=== PATIENT | male | born 1960 | race Caucasian/White ===

== ENCOUNTER 2024-03-18 11:52 | Inpatient (IN) | payer BC, OTHER ==
--- OUTSIDE RECORDS SUMMARY | 2024-03-18 11:56 | XMS REPORT | Continuity of Care Document ---
Author Name Unknown Address [address] [facility] [address] [place] [address] [facility] Address [address] [facility] [address] [place] [address] Care Team Providers Care Assignment Manager Name Role Phone Demetrius Ennis MD Primary Care Physician + [phone] Davon Chaudhry MD Attending Clinician [phone] DAVON CHAUDHRY Attending Clinician Unavail able Payers Payer Name Policy Type Policy Number Effective Date Expirati on Date Source Problems Condition Name Condition Details Condition Category Status Onset Date Resolution Date Last Treatment Date Treating Clinician Comments Source Aphasia Aphasia Disease Active 2023-03 00:00: 00 Memmine Mancuso Primary hypertensi on Primary hypertensi on Disease Active 2023-03 00:00: 00 Memoria l Dean Epic Hyperlipid emia Hyperlipid emia Disease Active 2023-03 00:00: 00 Memoria macario Moran Epic Memory loss Memory loss Disease Active 2023-03 00:00: 00 Memoria l Dean Epic Dysarthria Dysarthria Disease Active 11-06 00:00: 00 Memoria l Dean Epic Allergies, Adverse Reactions, Alerts Allergy Name Allergy Type Status Severity Reaction(s) Onset Date Inactive Date Treating Clinician Comments Source NO KNOWN ALLERGIE S SYSTEMIC Active MHEOUT ALLERGIE S NOT ON FILE SYSTEMIC Active MHEOUT ALLERGIE S NOT ON FILE SYSTEMIC Active MHEOUT NO KNOWN ALLERGIE S SYSTEMIC Active MHEOUT NO KNOWN ALLERGIE S SYSTEMIC Active MHEOUT Social History Social Habit Start Date Stop Date Quantity Comments Source History of tobacco use Passive smoker [facility] Gender identity Ciaran jarad [facility] Sexual orientation [facility] Alcoholic beverage intake 2024-02-23 00:00:00 2024-02-23 00:00:00 Current drinker of alcohol (finding) [facility] History of Social function 2024-02-23 00:00:00 2024-02-23 00:00:00 [facility] Tobacco use and exposure 2023-11-07 00:00:00 2023-11-07 00:00:00 Smokeless tobacco non-user [facility] Smoking Status Start Date Stop Date Source Smokes tobacco daily 2023-11-07 00:00:00 [facility] Medications Ordered Medication Name Filled Medication Name Start Date Stop Date Current Medication? Ordering Clinician Indication Dosage Frequency Signature (SIG) Comments Components Source Cyanocobala min (Vitamin B-12) 3000 MCG/ML liquid Cyanocobala min (Vitamin B-12) 3000 MCG/ML liquid 2023-03 14:21: [address] under the tongue. Ja sorto [facility] L-METHYLFOL ATE PO L-METHYLFOL ATE PO 2023-03 14:21: 56 Yes Take by mouth. Ja sorto [facility] Mounjaro 5 MG/0.5ML pen-injecto r Mounjaro 5 MG/0.5ML pen-injecto r 2023-03 00:00: 00 Yes Ja sorto [facility] atorvastati n (Lipitor) 20 MG tablet atorvastati n (Lipitor) 20 MG tablet 11-06 15:18: 39 Yes 20mg QD Take 20 mg by mouth 1 time each day. Ja sorto [facility] nebivolol (Bystolic) 20 MG tablet nebivolol (Bystolic) 20 MG tablet 11-06 15:18: 39 Yes 20mg QD Take 20 mg by mouth 1 time each day. Ja sorto [facility] olmesartan (BENIcar) 40 MG tablet olmesartan (BENIcar) 40 MG tablet 11-06 15:18: 39 Yes 40mg QD Take 40 mg by mouth 1 time each day. Ja sorto [facility] aspirin EC ([facility] Aspirin) 81 MG EC tablet aspirin EC ([facility] Aspirin) 81 MG EC tablet 9-03 15:18: 39 Yes 81mg QD Take 81 mg by mouth 1 time each day. Ja Moran [facility] ascorbic acid (vitamin C) 500 MG tablet ascorbic acid (vitamin C) 500 MG tablet 9-03 15:18: 39 02-22 00:00 :00 No 500mg QD Take 500 mg by mouth 1 time each day. Ja Moran [facility] metFORMIN (Glucophage ) 850 MG tablet metFORMIN (Glucophage ) 850 MG tablet 7-16 00:00: 00 02-22 00:00 :00 No 850mg Take 850 mg by mouth in the morning and 850 mg in the evening. Take with meals. Ja Moran [facility] Icosapent Ethyl (Vascepa) 1 g capsule Icosapent Ethyl (Vascepa) 1 g capsule 08-03 00:00: 00 Yes 2g Take 2 g by mouth in the morning and 2 g in the evening. Take [facility] meals. [facility] Vital Signs Vital Name Observation Time Observation Value Comments S scott Systolic blood pressure 2024-02-23 14:18:00 130 mm[Hg] [facility] Diastolic blood pressure 2024-02-23 14:18:00 94 mm[Hg] [facility] Heart rate 2024-02-23 14:18:00 85 /min [facility] Body temperature 2024-02-23 14:18:00 36.78 Zoya [facility] Respiratory rate 2024-02-23 14:18:00 16 /min [facility] Body height 2024-02-23 14:18:[address] [facility] Body weight 2024-02-23 14:18:[address] [facility] BMI 2024-02-23 14:18:00 28.24 kg/m2 [facility] Oxygen saturation in Arterial blood by Pulse oximetry 2024-02-23 14:18:00 96 /min [facility] Systolic blood pressure 2024-02-23 14:18:00 130 mm[Hg] [facility] Diastolic blood pressure 2024-02-23 14:18:00 94 mm[Hg] [facility] Epic Heart rate 2024-02-23 14:18:00 85 /min [facility] [place] [facility] Body temperature 2024-02-23 14:18:[address] [facility] Epic Respiratory rate 2024-02-23 14:18:00 16 /min [facility] Epic Body height 2024-02-23 14:18:00 175.3 cm Ciaran [facility] [place] Epic Body weight 2024-02-23 14:18:00 86.728 kg Ciaran rial [facility] BMI 2024-02-23 14:18:00 28.24 kg/m2 [facility] [place] [facility] Oxygen saturation in Arterial blood by Pulse oximetry 2024-02-23 14:18:00 96 /min [facility] Systolic blood pressure 2023-12-14 14:03:00 145 mm[Hg] [facility] Diastolic blood pressure 2023-12-14 14:03:00 94 mm[Hg] [facility] Heart rate 2023-12-14 14:03:00 98 /min [facility] [place] Epic Body temperature 2023-12-14 14:03:[address] [facility] Epic Respiratory rate 2023-12-14 14:03:00 16 /min [facility] Body height 2023-12-14 14:03:00 179.1 cm Ciaran [facility] Body weight 2023-12-14 14:03:00 90.719 kg [facility] [place] Epic BMI 2023-12-14 14:03:00 28.29 kg/m2 Ciaran rial [facility] Oxygen saturation in Arterial blood by Pulse oximetry 2023-12-14 14:03:00 96 /min [facility] Systolic blood pressure 2023-12-14 14:03:00 145 mm[Hg] [facility] Diastolic blood pressure 2023-12-14 14:03:00 94 mm[Hg] [facility] Heart rate 2023-12-14 14:03:00 98 /min [facility] Body temperature 2023-12-14 14:03:[address] [facility] Epic Respiratory rate 2023-12-14 14:03:00 16 /min [facility] Body height 2023-12-14 14:03:00 179.1 cm Ciaran rial Dean [facility] Body weight 2023-12-14 14:03:00 90.719 kg [facility] [place] Epic BMI 2023-12-14 14:03:00 28.29 kg/m2 Ciaran rial [facility] Oxygen saturation in Arterial blood by Pulse oximetry 2023-12-14 14:03:00 96 /min [facility] Systolic blood pressure 2023-11-07 15:19:00 159 mm[Hg] [facility] Diastolic blood pressure 2023-11-07 15:19:00 103 mm[Hg] [facility] Heart rate 2023-11-07 15:19:00 73 /min [facility] [place] [facility] Body temperature 2023-11-07 15:19:00 36.22 [facility] Respiratory rate 2023-11-07 15:19:00 16 /min [facility] Body height 2023-11-07 15:19:00 175.3 cm Ciaran rial Dean [facility] Body weight 2023-11-07 15:19:00 89.359 kg Ciaran rial Dean [facility] BMI 2023-11-07 15:19:00 29.09 kg/m2 [facility] [place] Epic Oxygen saturation in Arterial blood by Pulse oximetry 2023-11-07 15:19:00 97 /min [facility] Systolic blood pressure 2023-11-07 15:19:00 159 mm[Hg] [facility] Diastolic blood pressure 2023-11-07 15:19:00 103 mm[Hg] [facility] Heart rate 2023-11-07 15:19:00 73 /min [facility] Body temperature 2023-11-07 15:19:00 36.22 [facility] Respiratory rate 2023-11-07 15:19:00 16 /min [facility] Body height 2023-11-07 15:19:00 175.3 cm Ciaran rial Dean [facility] Body weight 2023-11-07 15:19:00 89.359 kg [facility] [place] [facility] BMI 2023-11-07 15:19:00 29.09 kg/m2 Ciaran rial [facility] Oxygen saturation in Arterial blood by Pulse oximetry 2023-11-07 15:19:00 97 /min [facility] Procedures Procedure Date / Time Performed Performing Clinician Source MRI brain wo IV contrast 2024-02-23 00:00:00 [facility] Ceruloplasmin 2023-11-07 00:00:00 [facility] Copper Level 2023-11-07 00:00:00 [facility] C-Reactive Protein 2023-11-07 00:00:00 [facility] Sedimentation Rate 2023-11-07 00:00:00 [facility] Vitamin B1 Level 2023-11-07 00:00:00 Ciaran rial [facility] Vitamin B12 Level 2023-11-07 00:00:00 [facility] Antibodies 2023-11-07 00:00:00 [facility] Zinc Level 2023-11-07 00:00:00 [facility] Acetylcholine Receptor Binding Antibody 2023-11-07 00:00:00 [facility] Acetylcholine Receptor Blocking Antibody 2023-11-07 00:00:00 [facility] Antivoltage-Gated Calcium Channel Antibody Assay 2023-11-07 00:00:00 [facility] Creatine Kinase 2023-11-07 00:00:00 [facility] Aldolase 2023-11-07 00:00:00 [facility] Rod(SSA/SSB) Antibody 2023-11-07 00:00:00 [facility] Herpes Simplex Virus 1 and 2 (IgG), with Reflex to HSV-2 Inhibition 2023-11-07 00:00:00 [facility] Varicella Zoster Antibody, IgG 2023-11-07 00:00:00 [facility] Varicella Zoster Antibody, IgM 2023-11-07 00:00:00 [facility] Encounters Start Date/Time End Date/Time Encounter Type Admission Type Attending [facility] Care Facility Care Department Encounter ID Source 2024-02-23 13:45:00 2024-02-23 15:08:20 Office Visit Davon Chaudhry [id number] [facility] 2024-02-23 13:36:05 2024-02-23 15:08:20 Outpatient DAVON CHAUDHRY MHEOUT MHEOUT [id number] MHEOUT 2023-12-14 14:00:00 2023-12-14 14:22:52 Office Visit Davon Chaudhry [id number] [facility] 2023-12-14 13:47:36 2023-12-14 14:22:52 Outpatient DAVON CHAUDHRY MHEOUT MHEOUT [id number] MHEOUT 2023-11-07 15:00:00 2023-11-07 16:22:54 Consult Davon Chaudhry [id number] [facility] 2023-11-07 14:41:24 2023-11-07 16:22:54 Outpatient DAVON CHAUDHRY MHEOUT MHEOUT [id number] MHEOUT
[2024-03-18 13:39] LABS: Absolute Basophils 0.1 K/uL (0-0.5); Absolute Eosinophils 0.1 K/uL (0-0.5); Absolute Lymphocytes (CBC) 1.4 K/uL (0.7-4.9); Absolute Neutrophil 6.7 K/uL (1.8-8.0); Basophils % 0.7 % (0-1.3); Eosinophils % 0.8 % (0-4.4); Hematocrit 46.5 % (39.6-49.0); Hemoglobin 15.9 g/dL (13.6-17.9); Lymphocytes % 14.9 % (15.3-44.8); MCH 33.1 pg (27.0-35.0); MCHC 34.3 g/dL (32.0-36.0); MCV 96.5 fL (80-100); MPV 8.6 fL (7.6-11.3); Monocytes % 11.1 % (3.3-12.3); Neutrophils % 72.5 % (41.7-73.7); Platelets 152 thou/uL (152-406); RBC Red Blood Cell Count 4.81 M/uL (4.33-5.43); Red Cell Distribution Width 12.9 % (12.1-15.2)
[2024-03-18 13:47] LABS: PT Prothrombin Time 12.6 SECONDS (9.4-12.5); Protime INR 1.2
--- NOTE | 2024-03-18 14:17 | RAD REPORT ---
EXAMINATION: US LEFT LOWER EXTREMITY VENOUS DOPPLER CLINICAL INDICATION: [facility] MAIN left PAIN Bed Name: DX5 Y TECHNIQUE: Complete bilateral duplex sonography of the LEFT lower extremity veins was performed. The examination included compression for vein patency, color Doppler imaging and flow augmentation in response to distal compression of the distal external iliac, common femoral, femoral, popliteal, tibi al, and great and small saphenous veins. COMPARISON: No prior exam. FINDINGS: Duplex sonography testing of the veins of the LEFT lower extremity was performed. Color flow imaging shows common and superficial femoral veins to be compressible with [id number] color filling. Pulsatile and phasic flow is present Noncompressible popliteal vein with acute appearing hypoechoic thrombus. Partially compressible poste rior tibial veins with hypoechoic thrombus. IMPRESSION: Evidence of deep venous thrombosis of the popliteal vein with and posterior tibial veins. THIS REPORT CONTAINS FINDINGS THAT MAY BE CRITICAL TO PATIENT CARE. The findings were verbally commun icated via telephone to Grover Whittaker on 03/18/2024 2:10PM.
--- NOTE | 2024-03-18 14:20 | RAD REPORT ---
EXAMINATION: US Lower Extremity Artery Uni Ltd CLINICAL INDICATION: Male, 63 years old. [facility] MAIN left PAIN Bed Name: DX5 TECHNIQUE: Arterial duplex ultrasound was performed of the Right lower extremity with real-time, colo r-flow, and spectral wave Doppler evaluation. COMPARISON: No prior exam. FINDINGS: Moderate plaque throughout the evaluated arterial system. Triphasic waveforms are seen along the com mon femoral and proximal superficial femoral arteries. Biphasic waveforms along the mid superficial femoral artery. Occlusion with absent flow along the distal superficial femoral artery and popliteal artery. Reconstitution of flow along the posterior tibial and dorsalis pedis arteries, with monophasic waveforms and blunted upstroke. IMPRESSION: Occlusion of the distal superficial femoral and popliteal arteries. Reconstitution of flow along the posterior tibial and dorsalis pedis arteries with monophasic wavefor ms and blunted upstroke. THIS REPORT CONTAINS FINDINGS THAT MAY BE CRITICAL TO PATIENT CARE. The findings were verbally commun icated via telephone to Grover Whittaker on 03/18/2024 2:10PM.
--- NOTE | 2024-03-18 14:35 | ER ---
Nurse's Notes [facility] Name: Ishaan Maldonado Age: 63 yrs Sex: Male : 1960 Arrival Date: 03/18/2024 Time: 11:52 Bed 20 Private MD: Diagnosis: Deep venous thrombosis;Superficial femoral and popliteal artery occlussions;Pulmonary embolism without acute cor pulmonale Presentation: 03/18 12:21 Chief complaint: Patient states: tingling and numbness in left foot , having pain in iw left calf, has a Doppler ordered in 2 weeks but it's getting worse. Coronavirus screen: At this time, the client does not indicate any symptoms associated with coronavirus-19. Ebola Screen: No symptoms or risks identified at this time. Risk Assessment: Do you want to hurt yourself or someone else? Patient reports no desire to harm self or others. 12:21 Method Of Arrival: Ambulatory iw 12:21 Acuity: MAX 3 iw 17:30 Initial Sepsis Screen: Does the patient meet any 2 criteria? No. Patient's initial ld1 sepsis screen is negative. Does the patient have a suspected source of infection? No. Patient's initial sepsis screen is negative. Onset of symptoms was March 18, 2024. Historical: - Allergies: 12:22 No Known Allergies; iw - PMHx: 12:22 Diabetes mellitus; iw - Immunization history:: Adult Immunizations up to date. - Infectious Disease History:: Denies. - Social history:: Smoking status: Patient reports the use of cigarette tobacco products, smokes one pack cigarettes per day. Screenin:20 [facility] ED Fall Risk Assessment (Adult) History of falling in the last 3 months, ld1 including since admission No falls in past 3 months (0 pts) Confusion or Disorientation No (0 pts) Intoxicated or Sedated No (0 pts) Impaired Gait No (0 pts) Mobility Assist Device Used No (0 pt) Altered Elimination No (0 pt) Score/Fall Risk Level 0 - 2 = Low Risk Oriented to surroundings, Maintained a safe environment, Educated pt \T\ family on fall prevention, incl call for assistance when getting out of bed, Assessed \T\ reinforced patient's understanding of fall precautions, Provided non-skid footwear, Hourly rounding (assess needs \T\ fall precautionary measures) done, Used ambulatory aids as needed (educated on \T\ assisted with), Used gait belt as appropriate. Abuse screen: Denies threats or abuse. Denies injuries from another. Nutritional screening: No deficits noted. Tuberculosis screening: No symptoms or risk factors identified. Assessment: 13:20 General: Appears in no apparent distress. comfortable, Behavior is calm, cooperative, ld1 appropriate for age. Pain: Complains of pain in left leg Pain does not radiate. Pain currently is 8 out of 10 on a pain scale. Quality of pain is described as throbbing, Pain began 2-3 days ago. Is continuous. Neuro: Level of Consciousness is awake, alert, obeys commands, Oriented to person, place, time, situation, Appropriate for age. Cardiovascular: Capillary refill < 3 seconds Patient's skin is warm and dry. Rhythm is sinus tachycardia. Respiratory: Airway is patent Respiratory effort is even, unlabored. GI: Abdomen is flat, non-distended. : No signs and/or symptoms were reported regarding the genitourinary system. EENT: No signs and/or symptoms were reported regarding the EENT system. Derm: Skin temperature is hot. Musculoskeletal: No signs and/or symptoms reported regarding the musculoskeletal system. Vital Signs: 12:23 BP 127 / 87; Pulse 115; Resp 18; Temp 97.9; Pulse Ox 98% on R/A; Weight 86.64 kg; iw Height 5 ft. 11 in. ; Pain 8/10; 13:20 BP 128 / 79; Pulse 107; Resp 18; Temp 98.6(O); Pulse Ox 97% on R/A; ld1 14:15 BP 100 / 86; Pulse 110; Resp 18; Pulse Ox 97% on R/A; ld1 15:03 Weight 87.09 kg (M); ld1 15:39 BP 129 / 102; Pulse 112; Resp 18; Pulse Ox 95% on R/A; iw 12:23 Body Mass Index 26.64 (87.09 kg, 180.34 cm) iw 12:23 Pain Scale: Adult iw ED Course: 11:56 Patient arrived in ED. sj2 12:11 Grover Whittaker DO is Attending Physician. ms3 12:22 Triage completed. iw 12:23 Arm band placed on. iw 12:54 Extremity Venous Uni Ltd US In Process Unspecified. EDMS 12:54 Lower Extremity Artery Uni Ltd US In Process Unspecified. EDMS 13:14 Ashley Whittaker, RN is Primary Nurse. ld1 13:20 Patient has correct armband on for positive identification. Placed in gown. Bed in low ld1 position. Call light in reach. Side rails up X2. athletic monitor on. Pulse ox on. NIBP on. Door closed. Noise minimized. Warm blanket given. 13:20 No provider procedures requiring assistance completed. ld1 13:29 Inserted saline lock: 22 gauge in left antecubital area, using aseptic technique. Blood ld1 collected. Flushed with 10 mL NS. 13:30 PT-INR Sent. ld1 13:30 BMP Sent. ld1 13:30 CBC with Diff Sent. ld1 14:33 Orestes Calvin is Hospitalizing Provider. ms3 14:45 CT Chest For PE Angio In Process Unspecified. EDMS 17:30 Patient admitted, IV remains in place. ld1 Administered Medications: 15:14 Drug: Heparin (DVT/PE- Bolus per protocol) - HEParin IVP 80 units/kg IVP once; Max iw 8,000 units {Co-Signature: smith (Jennifer Quick RN).} Route: IVP; Site: left antecubital; 16:27 Follow up: Response: No adverse reaction ld1 15:14 Drug: Heparin (DVT/PE Drip) 18 units/kg/hr - ([place] [address] units, D5W IV 500 ml) IV iw at calculated rate Per protocol; Max initial rate 1800 units/hr {Co-Signature: smith (Jennifer Quick RN).} Route: IV; Rate: calculated rate; Site: left antecubital; 16:27 Follow up: Response: No adverse reaction; IV Status: Infusion continued ld1 Medication: 13:20 VIS not applicable for this client. ld1 Outcome: 14:34 Decision to Hospitalize by Provider. ms3 17:30 Admitted to Med/surg accompanied by tech, via wheelchair, ld1 17:30 Condition: stable 17:30 Instructed on the need for admit, 17:30 Patient left the ED. ld1 Signatures: Dispatcher [employer] EDMS Mamie Hale RN RN iw Grover Whittaker DO DO ms3 Ashley Whittaker, SHMUEL RN ld1 Amanda Shah sj2 Jennifer Quick RN db
--- NOTE | 2024-03-18 14:35 | EDPHYS ---
Physician Documentation [facility] Name: Ishaan Maldonado Age: 63 yrs Sex: Male : 1960 Arrival Date: 03/18/2024 Time: 11:52 Bed 20 Private MD: ED Physician Grover Whittaker HPI: 03/18 12:39 This 63 yrs old Male presents to ER via Ambulatory with complaints of Leg Pain, Leg ms3 Swelling. 12:39 Ishaan Maldonado, a 63-year-old male with a history of diabetes, presents to the emergency ms3 department with leg pain and swelling that has been ongoing for three weeks. The pain is localized from the knee downwards and was rated as an 8 out of 10 yesterday. He reports tingling and discoloration in the affected area. He had been more active on his feet recently, which exacerbated the pain. He has undergone a consultation with Dr. Ennis and was referred to Dr. Hernández for further evaluation. A venous Doppler, arterial test, echocardiogram, and stress test have been ordered, but scheduling is delayed due to insurance issues. There is concern about a possible blood clot. . Historical: - Allergies: 12:22 No Known Allergies; iw - PMHx: 12:22 Diabetes mellitus; iw - Immunization history:: Adult Immunizations up to date. - Infectious Disease History:: Denies. - Social history:: Smoking status: Patient reports the use of cigarette tobacco products, smokes one pack cigarettes per day. ROS: 12:39 Constitutional: Negative for fever, and chills. Cardiovascular: Negative for chest ms3 pain, and palpitations. Respiratory: Negative for shortness of breath, cough, wheezing, and pleuritic chest pain, Abdomen/GI: Negative for abdominal pain, nausea, vomiting, diarrhea, and constipation, 12:39 MS/extremity: Positive for Left leg pain, Exam: 12:39 Constitutional: This is a well developed, well nourished patient who is awake, alert, ms3 and in no acute distress. Head/Face: Normocephalic, atraumatic. Cardiovascular: Regular rate and rhythm with a normal S1 and S2. No gallops, murmurs, or rubs. Normal PMI, no JVD. No pulse deficits. Respiratory: Lungs have equal breath sounds bilaterally, clear to auscultation and percussion. No rales, rhonchi or wheezes noted. No increased work of breathing, no retractions or nasal flaring. Abdomen/GI: Soft, non-tender, with normal bowel sounds. No distension or tympany. No guarding or rebound. No evidence of tenderness throughout. Skin: Warm, dry with normal turgor. Normal color with no rashes, no lesions, and no evidence of cellulitis. 12:39 Musculoskeletal/extremity: Extremities: noted in the Left leg: There is no evidence of pain, tenderness, Cap refill less than 2 seconds, Vital Signs: 12:23 BP 127 / 87; Pulse 115; Resp 18; Temp 97.9; Pulse Ox 98% on R/A; Weight 86.64 kg; iw Height 5 ft. 11 in. ; Pain 8/10; 13:20 BP 128 / 79; Pulse 107; Resp 18; Temp 98.6(O); Pulse Ox 97% on R/A; ld1 14:15 BP 100 / 86; Pulse 110; Resp 18; Pulse Ox 97% on R/A; ld1 15:03 Weight 87.09 kg (M); ld1 15:39 BP 129 / 102; Pulse 112; Resp 18; Pulse Ox 95% on R/A; iw 12:23 Body Mass Index 26.64 (87.09 kg, 180.34 cm) iw 12:23 Pain Scale: Adult iw MDM: 12:27 Medical Screening Exam initiated ms3 12:39 Differential diagnosis: DVT vs PVD. ms3 14:34 Data reviewed: vital signs, nurses notes, lab test result(s), radiologic studies, and ms3 as a result, I will admit patient. Consideration of Admission/Observation Patient was admitted/placed on observation. Management of patient was discussed with the following: Hospitalist: KARLA Grossman with Dr Calvin. Actuarial Science Teacher: Dr Siddiqi- will plan for angiogram tomorrow. Have hospitalist consult him. I considered the following discharge prescriptions or medication management in the emergency department Medications were administered in the Emergency Department. See MAR. Historians other than the Patient: Family Member: Patient's son. Counseling: I had a detailed discussion with the patient and/or guardian regarding the historical points, exam findings, and any diagnostic results supporting the discharge/admit diagnosis, lab results, radiology results, the need for further work-up and treatment in the hospital. ED course: Discussed venous ultrasound, arterial ultrasound with the patient and his son. They understand and agree with plan for admission. CT PE pending. Discussed with Ngoc and she accepts patient.. 03/18 13:09 Order name: CBC with Diff; Complete Time: 13:44 ms3 03/18 13:09 Order name: BMP; Complete Time: 13:56 ms3 03/18 13:09 Order name: PT-INR; Complete Time: 13:48 ms3 03/18 14:38 Order name: Ptt, Activated; Complete Time: 16:06 ld1 03/18 15:39 Order name: Urinalysis w/ reflexes EDMS 03/18 15:39 Order name: Basic Metabolic Panel EDMS 03/18 15:39 Order name: Basic Metabolic Panel EDMS 03/18 15:39 Order name: Basic Metabolic Panel EDMS 03/18 15:39 Order name: Basic Metabolic Panel EDMS 03/18 15:39 Order name: Basic Metabolic Panel EDMS 03/18 15:39 Order name: Basic Metabolic Panel EDMS 03/18 15:39 Order name: Basic Metabolic Panel EDMS 03/18 15:39 Order name: Basic Metabolic Panel EDMS 03/18 15:39 Order name: CBC with Automated Diff EDMS 03/18 15:39 Order name: CBC with Automated Diff EDMS 03/18 15:39 Order name: CBC with Automated Diff EDMS 03/18 15:39 Order name: CBC with Automated Diff EDMS 03/18 15:39 Order name: CBC with Automated Diff EDMS 03/18 15:39 Order name: CBC with Automated Diff EDMS 03/18 15:39 Order name: CBC with Automated Diff EDMS 03/18 15:39 Order name: CBC with Automated Diff EDMS 03/18 15:39 Order name: Magnesium EDMS 03/18 15:39 Order name: Magnesium EDMS 03/18 15:39 Order name: Magnesium EDMS 03/18 15:39 Order name: Magnesium EDMS 03/18 15:39 Order name: Magnesium EDMS 03/18 15:39 Order name: Magnesium EDMS 03/18 15:39 Order name: Magnesium EDMS 03/18 15:39 Order name: Magnesium EDMS 03/18 15:39 Order name: Phosphorus EDMS 03/18 15:39 Order name: Phosphorus EDMS 03/18 15:39 Order name: Phosphorus EDMS 03/18 15:39 Order name: Phosphorus EDMS 03/18 15:39 Order name: Phosphorus EDMS 03/18 15:39 Order name: Phosphorus EDMS 03/18 15:39 Order name: Phosphorus EDMS 03/18 15:39 Order name: Phosphorus EDMS 03/18 12:27 Order name: Extremity Venous Uni Ltd US; Complete Time: 14:24 ms3 03/18 12:27 Order name: Lower Extremity Artery Uni Ltd US; Complete Time: 14:24 ms3 03/18 14:26 Order name: CT Chest For PE Angio; Complete Time: 15:27 ms3 03/18 15:38 Order name: CONS Physician Consult EDMS 03/18 15:38 Order name: Physical Therapy Consult EDMS Administered Medications: 15:14 Drug: Heparin (DVT/PE- Bolus per protocol) - HEParin IVP 80 units/kg IVP once; Max iw 8,000 units {Co-Signature: smith (Jennifer Quick RN).} Route: IVP; Site: left antecubital; 16:27 Follow up: Response: No adverse reaction ld1 15:14 Drug: Heparin (DVT/PE Drip) 18 units/kg/hr - ([place] [address] units, D5W IV 500 ml) IV iw at calculated rate Per protocol; Max initial rate 1800 units/hr {Co-Signature: smith (Jennifer Quick RN).} Route: IV; Rate: calculated rate; Site: left antecubital; 16:27 Follow up: Response: No adverse reaction; IV Status: Infusion continued ld1 Disposition Summary: 03/18/24 14:34 Hospitalization Ordered Notes: Hospitalization Status: Inpatient Admission ms3 Provider: Orestes Calvin ms3 Location: Telemetry/MedSur (Inpatient) ms3 Condition: Stable ms3 Problem: new ms3 Symptoms: are unchanged ms3 Bed/Room Type: Standard ms3 Room Assignment: 414(03/18/24 16:43) bd Diagnosis - Deep venous thrombosis ms3 - Superficial femoral and popliteal artery occlussions ms3 - Pulmonary embolism without acute cor pulmonale ms3 Forms: - Medication Reconciliation Form ms3 - SBAR form ms3 - Leadership Thank You Letter ms3 Critical care time excluding procedures: 14:37 Critical care time: Bedside Care: 30 minutes, Consultation: 5 minutes, Family ms3 Intervention: 5 minutes. Total time: 40 minutes Signatures: Dispatcher [employer] EDConcepcion Patten Irene, RN RN iw Grover Whittaker, DO ms3 Ashley Whittaker RN ld1 Jennifer Quick RN db Corrections: (The following items were deleted from the chart) 12:42 12:39 Musculoskeletal/extremity: Extremities: noted in the Left leg: There is no ms3 evidence of pain, tenderness, ms3 16:43 14:34 ms3 bd
[2024-03-18] MEDS ORDERED: HEPARIN/D5W 25,000 UNIT/500 ML BAG IV ONE (14:38)
[2024-03-18] MEDS ORDERED: HEPARIN 5000 UNIT/ML 1 ML VIAL ONE (14:38)
[2024-03-18] MEDS ORDERED: ACETAMINOPHEN 325 MG TABLET PO PRN (15:25)
--- NOTE | 2024-03-18 15:26 | RAD REPORT ---
EXAM: CT Chest For Pe Angio TECHNIQUE: CT angiogram of the chest was performed following intravenous contrast administration, inc luding sagittal and coronal as well as maximum intensity projection reformats. One or more of the following dose reduction techniques were used: Automated exposure control, adjustment of the mA and k V according to patient size, and iterative reconstruction. Unless otherwise specified, incidental findings do not require dedicated imaging follow-up. INDICATION: [facility] DVT, Tachycardia Bed Name: 20 Y COMPARISON: 10/25/2017 chest radiograph. FINDINGS: LINES/TUBES: None. PULMONARY ARTERIES: Main pulmonary arteries are normal in caliber. Predominantly subocclusive pulmon chuyita emboli within branches to the right upper lobe, starting at the first order branches. Predominantly subocclusive pulmonary emboli within branches to the right middle and lower lobes, star ting at 2nd-3rd order branches. LUNGS AND AIRWAYS: The lungs and central airways are normal without focal abnormality. PLEURA: No effusion or pneumothorax. HEART AND MEDIASTINUM: The visualized thyroid gland is normal. No mediastinal, hilar, or axillary lym phadenopathy. Heart is unremarkable. No pericardial effusion. SOFT TISSUES AND BONES: No acute osseous abnormality. No significant soft tissue finding. UPPER ABDOMEN: Unremarkable. IMPRESSION: Predominantly subocclusive pulmonary emboli throughout the right lung lobes as above. No findings to suggest right heart strain. THIS REPORT CONTAINS FINDINGS THAT MAY BE CRITICAL TO PATIENT CARE. The findings were verbally commun icated via telephone to Pawan Adams on 03/18/2024 3:22 PM.
[2024-03-18] MEDS ORDERED: GLUCAGON 1 MG/VIAL IM PRN (15:57)
[2024-03-18] MEDS ORDERED: D10W 125 ML IV PRN (15:57)
--- NOTE | 2024-03-18 15:58 | P.HP ---
Certification for Inpatient Patient admitted to: Observation With expected LOS: <2 Midnights Practitioner: I am a practitioner with admitting privileges, knowledge of patient current condition, hospital course, and medical plan of care. Services: Services provided to patient in accordance with Admission requirements found in Title 42 Section 412.3 of the Code of Federal Regulations Patient History Date of Service: 03/18/24 Reason for admission: DVT, PE, femoral-popliteal artery occlusion History of Present Illness: Ishaan Maldonado is a 63-year-old male with past medical history of diabetes mellitus, hypertension who presents to the ED with pain to his left leg for 2 weeks. Ishaan was seen by his PCP who referred him to Dr. Hernández's office for examination with Doppler and a stress test. Patient's son at the bedside reports his insurance denied those tests. His left leg continued to hurt, his son brought him to the ED for further evaluation. Arterial Doppler study reports occlusion of the distal superficial femoral and popliteal arteries, venous Doppler reports evidence of deep venous thrombosis of the popliteal vein and posterior tibial vein, CTA thorax reports predominantly subocclusive pulmonary emboli throughout the right lung lobes, no findings to suggest right heart strain. Laboratory evaluation grossly unremarkable. LLE positive for capillary refill and palpable pulse. Initial vitals BP 127 / 87; Pulse 115; Resp 18; Temp 97.9; Pulse Ox 98% on R/A Ishaan will be admitted to hospitalist service for further evaluation and treatment of DVT and PE, Dr. Siddiqi consulted for procedure to left lower extremity. Allergies No Known Allergies Allergy (Unverified 06/17/12 20:59) - Past Medical/Surgical History -: Hypertension -: Diabetes mellitus Past Surgical History: Unable to obtain - Social History Smoking Status: Current every day smoker Alcohol use: No CD- Drugs: No Review of Systems Musculoskeletal: Leg Pain (LLE pain) Physical Examination - Physical Exam General: Alert, In no apparent distress, Oriented x3 HEENT: Atraumatic, Normocephalic Neck: 2+ carotid pulse no bruit, JVD not distended Respiratory: Clear to auscultation bilaterally, Normal air movement Cardiovascular: Normal pulses, Regular rate/rhythm, Normal S1 S2 Capillary refill: <2 Seconds Gastrointestinal: Normal bowel sounds, Soft and benign Musculoskeletal: No clubbing, Warmth, Other (capillary refill) Integumentary: No rashes Neurological: Normal tone, Abnormal speech - Studies Laboratory Data (last 24 hrs) 03/18/24 03/18/24 03/18/24 14:56 13:27 13:27 WBC Hgb Hct Plt Count PT 12.6 H INR 1.20 APTT 27.4 Sodium 138 Potassium 4.0 BUN 19 H Creatinine 1.24 Glucose 151 H 03/18/24 13:27 WBC 9.20 Hgb 15.9 Hct 46.5 Plt Count 152 PT INR APTT Sodium Potassium BUN Creatinine Glucose Assessment and Plan - Plan Assessment and plan Left lower extremity arterial occlusion and DVT PEs right lung -Arterial Doppler study reports occlusion of the distal superficial femoral and popliteal arteries -venous Doppler reports evidence of deep venous thrombosis of the popliteal vein and posterior tibial vein -CTA thorax reports predominantly subocclusive pulmonary emboli throughout the right lung lobes, no findings to suggest right heart strain -Dr. Siddiqi consulted- plan for procedure in the catheter finisher and inspector in the morning -N.p.o. midnight -Heparin gtt -head and neck MRI/MRA pending -Will need to start Plavix and eliquis postprocedure Diabetes mellitus -Serum glucose 151 -Accu-Chek with sliding scale insulin -A1c in the a.m. Hypertension -Continue home medication when available DVT PPx heparin drip Full code LOS 2 days Discharge Plan: Home Plan to discharge in: 48 Hours - Advance Directives Does patient have a Living Will: No Does patient have a Durable POA for Healthcare: No
--- NOTE | 2024-03-18 18:01 | RAD REPORT ---
EXAM: MRA head without contrast HISTORY: Stroke [facility] MAIN N CVA r/o COMPARISON: None TECHNIQUE: MRA of the head was performed without contrast using 3-D [id number] imaging. 3-D rotational refor mats were performed. FINDINGS: Right intracranial internal carotid artery: Patent without narrowing or occlusion Right anterior cerebral artery: Patent without narrowing or occlusion Right middle cerebral artery: Patent with mild luminal irregularity of the M1 segment, without narrow ing or occlusion Left intracranial internal carotid artery: Patent without narrowing or occlusion Left anterior cerebral artery: Patent without narrowing or occlusion, although with diminutive calibe r of the left M1 segment which could be of developmental nature. Left middle cerebral artery: Mild luminal irregularity along proximal to mid M1 segment, without sign ificant narrowing. No significant narrowing or occlusion of the proximal M1 vessels No aneurysmal dilatation is seen in the anterior circulation. Right vertebral artery: Patent without narrowing or occlusion Left vertebral artery: Patent without narrowing or occlusion Basilar artery: Patent without narrowing or occlusion The posterior cerebral arteries and cerebellar arteries are patent although with focal mild to modera te luminal irregularity and narrowing along the right P1/P2 junction. Vessels are otherwise patent.. No aneurysmal dilatation is seen in the posterior circulation. IMPRESSION: No MRA evidence of large vessel occlusion or critical stenosis. Short segments of luminal irregularity along M1 segments bilaterally without significant narrowing. F ocal mild to moderate luminal irregularity and narrowing along the right P1/P2 junction. Findings suggest sequelae of intracranial atherosclerotic disease.
[2024-03-18] MEDS: NA CHLORIDE 0.9% 1,000 ML IV SCH (18:04)
[2024-03-18] MEDS: INSULIN REGULAR (HUMAN) 100 UNIT/ML SQ SCH (18:08)
--- NOTE | 2024-03-18 18:09 | RAD REPORT ---
EXAM: MRA neck without and with contrast HISTORY: Stroke COMPARISON: MRA brain of the same day TECHNIQUE: An MRA of the neck was performed before and after intravenous administration of 20 mL MultiHance, uti lizing 2-D [id number] imaging for precontrast imaging. Postcontrast images were also performed with 3-D rotational reformats generated and reviewed. FINDINGS: Aortic arch: Normal origin of the carotid arteries from the arch. No significant atherosclerotic dise ase of the subclavian arteries. Right common carotid artery: No significant atherosclerotic disease or narrowing Left common carotid artery: No significant atherosclerotic disease or narrowing Right internal carotid artery: No significant atherosclerotic disease or narrowing per NASCET criteri a. Right external carotid artery: No significant atherosclerotic disease or narrowing Left internal carotid artery: Focal narrowing of the left ICA origin with narrowest luminal diameter measuring 2.1 mm, compared to luminal diameter of 4.8 mm distally, amounting to 57% stenosis per NASCET criteria. Left external carotid artery: No significant atherosclerotic disease or narrowing Right cervical vertebral artery: No significant atherosclerotic disease or narrowing Left cervical vertebral artery: No significant atherosclerotic disease or narrowing IMPRESSION: Focal narrowing of the left ICA origin amounting to 57% stenosis. No other significant narrowing or evidence of occlusion of the main cervical vessels.
[2024-03-18 18:59] LABS: Sqamous Epithelial None Seen /HPF (None Seen); Urine Bacteria None Seen /HPF (<20); Urine Bilirubin NEGATIVE (Negative); Urine Blood Trace (Negative); Urine Clarity Clear (Clear); Urine Color Light-Yellow (Yellow); Urine Culture Reflex Order REFLEXED; Urine Glucose 4+ (Over) (Negative); Urine Ketones NEGATIVE (Negative); Urine Microscopic Reflex YN ORDER UMIC; Urine Mucus Slight /HPF (None Seen); Urine Nitrite NEGATIVE (Negative); Urine Protein NEGATIVE (Negative); Urine RBC None Seen /HPF (None Seen); Urine Urobilinogen Normal (Normal)
[2024-03-18 19:03] LABS: Specific Gravity > 1.030 (1.005-1.030)
[2024-03-18] MEDS: ASPIRIN EC 81 MG TAB PO SCH (20:44)
[2024-03-18] MEDS: ATORVASTATIN 20 MG TAB PO SCH (20:44)
[2024-03-18 23:55] LABS: RPR (Rapid Plasma Reagin) NON-REACT (NON-REACT)
[2024-03-19 07:01] LABS: Absolute Basophils 0.1 K/uL (0-0.5); Absolute Eosinophils 0.1 K/uL (0-0.5); Absolute Lymphocytes (CBC) 1.7 K/uL (0.7-4.9); Absolute Monocytes 0.9 K/uL (0.1-1.3); Absolute Neutrophil 6.2 K/uL (1.8-8.0); Basophils % 0.7 % (0-1.3); Eosinophils % 1.1 % (0-4.4); Hematocrit 43.7 % (39.6-49.0); Hemoglobin 14.9 g/dL (13.6-17.9); Lymphocytes % 18.8 % (15.3-44.8); MCH 33.1 pg (27.0-35.0); MCV 97.2 fL (80-100); Monocytes % 10.4 % (3.3-12.3); Platelets 143 thou/uL (152-406); Red Cell Distribution Width 13.1 % (12.1-15.2)
[2024-03-19 07:07] LABS: Anion Gap 7.9 mEq/L (5.0-15.0); Magnesium 1.8 mg/dL (1.6-2.4); Phosphorus 2.4 mg/dL (2.5-4.9); Potassium 3.9 mEq/L (3.5-5.1)
--- NOTE | 2024-03-19 13:29 | P.PN ---
Date of Service: 03/19/24 Subjective: Continues to have some pain in the left lower extremity Breathing well room air, no acute events overnight ROS: 10 point ROS as noted above, otherwise negative Physical exam GEN: Alert, oriented, NAD HEENT: Normal conjunctiva, sclera anicteric CV: Regular rate and rhythm, no edema Pulm: Nonlabored respirations on room air ABD: Soft, nontender, nondistended MSK: No joint tenderness Integumentary: No rashes Neuro: Normal speech, normal affect Vitals reviewed Assessment and plan Left lower extremity arterial occlusion and DVT PEs right lung -Arterial Doppler study reports occlusion of the distal superficial femoral and popliteal arteries -venous Doppler reports evidence of deep venous thrombosis of the popliteal vein and posterior tibial vein -CTA thorax reports predominantly subocclusive pulmonary emboli throughout the right lung lobes, no findings to suggest right heart strain -Dr. Siddiqi consulted- plan for possible procedure AM of 03/20 -N.p.o. midnight -Heparin gtt -As needed pain meds Diabetes mellitus -Serum glucose 151 -Accu-Chek with sliding scale insulin -A1c in the a.m. Hypertension -Continue home medication when available DVT PPx heparin drip Full code LOS 2 days Time Spent Managing Pts Care (In Minutes): 35
[2024-03-19] MEDS: ACETAMINOPHEN 325 MG TABLET PO ONE (15:06)
[2024-03-19 16:59] VITALS: BMI 26.4
[2024-03-19] MEDS: VALSARTAN 160 MG TAB PO SCH (17:05)
[2024-03-19] MEDS: NEBIVOLOL HCL 20 MG TABLET PO SCH (17:06)
[2024-03-19] MEDS: icosapent ethyL 1 GM CAP PO SCH (20:24)
[2024-03-19] MEDS: HYDROCODONE/APAP 5/325 MG TAB PO PRN (21:32)
[2024-03-19] MEDS: MELATONIN 5 MG TABLET PO PRN (22:14)
[2024-03-20 06:45] LABS: Absolute Basophils 0.1 K/uL (0-0.5); Absolute Eosinophils 0.1 K/uL (0-0.5); Absolute Lymphocytes (CBC) 1.8 K/uL (0.7-4.9); Absolute Monocytes 0.9 K/uL (0.1-1.3); Absolute Neutrophil 5.2 K/uL (1.8-8.0); Basophils % 1.1 % (0-1.3); Eosinophils % 1.5 % (0-4.4); Hematocrit 42.5 % (39.6-49.0); Hemoglobin 14.5 g/dL (13.6-17.9); Lymphocytes % 21.8 % (15.3-44.8); MCH 32.9 pg (27.0-35.0); MCV 96.8 fL (80-100); Monocytes % 11.6 % (3.3-12.3); Nucleated Red Blood Cells % 0.1 % (0-0); Platelets 149 thou/uL (152-406); RBC Red Blood Cell Count 4.39 M/uL (4.33-5.43); Red Cell Distribution Width 12.8 % (12.1-15.2)
[2024-03-20 07:03] LABS: Magnesium 1.9 mg/dL (1.6-2.4); Phosphorus 3.1 mg/dL (2.5-4.9)
[2024-03-20] MEDS ORDERED: HOME MED 1 EA UNK (Olmesartan Medoxomil [Olmesartan Medoxomil] 40 MG Tablet) PO SCH (09:00)
--- NOTE | 2024-03-20 11:58 | P.PN ---
Date of Service: 03/20/24 Subjective: Continues to have some pain in the left lower extremity Breathing well room air, no acute events overnight ROS: 10 point ROS as noted above, otherwise negative Physical exam GEN: Alert, oriented, NAD HEENT: Normal conjunctiva, sclera anicteric CV: Regular rate and rhythm, no edema Pulm: Nonlabored respirations on room air ABD: Soft, nontender, nondistended MSK: No joint tenderness Integumentary: No rashes Neuro: Normal speech, normal affect Vitals reviewed Assessment and plan Left lower extremity arterial occlusion and DVT PEs right lung -Arterial Doppler study reports occlusion of the distal superficial femoral and popliteal arteries -Venous Doppler reports evidence of deep venous thrombosis of the popliteal vein and posterior tibial vein -CTA thorax reports predominantly subocclusive pulmonary emboli throughout the right lung lobes, no findings to suggest right heart strain -Plan for intervention today in the evening -Heparin gtt -As needed pain meds Diabetes mellitus -Serum glucose 151 -Accu-Chek with sliding scale insulin -A1c in the a.m. Hypertension -Continue home medication when available DVT PPx heparin drip Full code LOS 2 days Time Spent Managing Pts Care (In Minutes): 35
--- NOTE | 2024-03-20 13:00 | P.PN ---
Date of Service: 03/19/24 CC Left leg pain HPI The patient is a 63-year-old male with pain in the left leg. Patient states that between 3 weeks and 2 months ago, he has developed pain in the left calf. The pain is constant. The pain is described as severe, sharp, sometimes burning. He has a history of diabetes, hypertension, as well as smoking 1 pack per day. Arterial ultrasound demonstrated occlusion of the distal superficial femoral artery with poor flow to the foot. The patient was interviewed with his daughter. His daughter states that the patient has some form of mental disconnect, where he cannot recall or answer simple questions. History was obtained from the patient as well as his daughter. He denies any history of open wounds to the legs. Denies any blue toes are black toes. He was found to have deep vein thrombosis as well as pulmonary embolism and is on a heparin drip. PMHx HTN Type II DM Soc Hx Alcohol: Do not drink Drug Abuse: No illicit drug use Tobacco: Current every day smoker ROS Constitutional: (-)fever, (-)night sweats, (-)chills, (-)cold intolerance, (- )heat intolerance, (+)fatigue, (-)daytime somnolence Eyes: (-)change in vision, (-)loss of vision, (-)blurred vision, (-)tearing, (- )purulent discharge Ears: (-)difficulty hearing, (-)hearing loss, (-)ear pain/ear ache, (-)tinnitus Nose: (-)nasal congestion, (-)nasal discharge, (-)epistaxis Mouth/Throat/Voice: (-)lip sores, (-)mouth sores, (-)tongue sores, (-)sore throat, (-)dysphagia, (-)odynophagia, (-)gum bleeding, (-)hoarse voice, (- )change in voice quality Neck: (-)neck pain, (-)neck stiffness, (-)neck lumps Respiratory: (-)dyspnea, (-)cough, (-)hemoptysis Cardiovascular: (-)chest pain, (-)palpitations, (-)dyspnea at rest, (+)lower extremity edema, (+)varicosities Gastrointestinal: (-)abdominal pain, (-)rectal pain, (-)vomiting, (-)vomiting blood Urinary: (-)dysuria, (-)hematuria, (-)polyuria, (-)oliguria Dermatologic/Integumentary: (-)change in hair texture, (-)change in skin texture, (-)skin wounds, (+)itching, (-)rash, (-)bruising Musculoskeletal: (+)muscle pain, (+)back pain, (+)tender points, (+)muscle cramps, (-)muscle weakness, (-)decreased muscle strength, (+)difficulty walking Neurological: (-)headaches, (-)vertigo, (-)lightheadedness, (-)fainting, (- )blackout(s), (+)numbness, (+)tingling, (-)tremor Psychiatric: (-)change in mood, (-)depression, (-)sadness interfering with function, (-)anxiety, (-)nerousness, (-)suicidal ideation Hematologic/Lymphatic: (-)easy bruising, (-)difficulty stopping blood flow, (- )lymph node enlargement Mental/Functional The patient's speech was normal, sharing conversation with normal laryngeal efforts. Appropriate mood and affect were seen on exam. Thought processes were logical, relevant, and thoughts were completed normally. Thought content was normal. Thought content was normal with no psychotic or suicidal thoughts. The patient's judgement was realistic with normal insight into their present condition. Mental status included: correct time, place, person orientation, normal recent and remote memory, normal attention span and concentration ability. Language skills included the ability to correctly name objects. Fund of knowledge included normal awareness of current and past events. EXAM GEN: NAD, cooperative with exam, well groomed, well developed, well nourished HEENT: Head normocephalic, atraumatic, head normocephalic, head atraumatic, EOMI NECK: full range of motion, trachea midline, no increased JVP visible RESP: no respiratory distress, no use of accessory muscles of respiration CV: regular rate and rhythm , pulse rate regular GI: NL abdominal inspection, soft, nontender to palpation, no rebound/guarding/rigidity DERM: (-)diaphoresis, (-)periorbital xanthelasma, (-)xanthomas, (-)cyanosis PSYCH: alert and oriented to time, place, and person, normal mood, normal affect Left leg: Femoral pulse palpable. Popliteal, dorsalis pedis and posterior tibial pulses nonpalpable. No gangrene. Acetaminophen (Acetaminophen 325 Mg Tablet) 650 mg PO Q4HP PRN PRN Reason: Temp > 100 F or mild pain Hydrocodone Bitart/Acetaminophen (Hydrocodone/Apap 5/325 Mg Tab) 1 tab PO Q6H PRN PRN Reason: Pain scale 5-7 (Moderate) Last Admin: 03/19/24 21:32 Dose: 1 tab Aspirin (Aspirin Ec 81 Mg Tab) 81 mg PO DAILY [facility] Last Admin: 03/20/24 09:35 Dose: 81 mg Atorvastatin Calcium (Atorvastatin 20 Mg Tab) 40 mg PO BEDTIME [facility] Last Admin: 03/19/24 20:24 Dose: 40 mg Glucagon (Glucagon 1 Mg/Vial) 1 mg IM 1X PRN PRN Reason: HYPOGLYCEMIA Sodium Chloride (Ns 1000 Ml Ivbag) 1,000 mls @ 75 mls/hr IV .[id number] [facility] Last Admin: 03/20/24 11:03 Dose: 1,000 mls Heparin Sodium/Dextrose (Heparin Drip 25,000 Units/5oo Ml Premix) 25,000 unit in 500 mls @ 0 mls/hr IV UD VANESA; Protocol Dextrose (Dextrose 10% Water Iv Soln.) 125 mls @ 0 mls/hr IV PRN PRN; Protocol PRN Reason: HYPOGLYCEMIA Insulin Human Regular (Insulin Regular (Human) 100 Unit/Ml) 0 unit SQ ACHS [facility]; Protocol Last Admin: 03/20/24 11:30 Dose: Not Given Melatonin (Melatonin 5 Mg Tablet) 5 mg PO BEDTIME PRN PRN PRN Reason: INSOMNIA Last Admin: 03/19/24 22:14 Dose: 5 mg Nebivolol (Nebivolol Hcl 20 Mg Tablet) 20 mg PO DAILY [facility] Last Admin: 03/20/24 09:36 Dose: 20 mg Valsartan (Valsartan 160 Mg Tab) 40 mg PO DAILY [facility] Last Admin: 03/20/24 09:35 Dose: 40 mg Assessment Peripheral vascular disease with rest pain (I70.222) Athscl eagle arteries of extremities w rest pain, left leg modified Mar, Plan 1. The patient is a 63-year-old male with history of hypertension, diabetes and smoking. He has a 3 week to 2 month history of severe and constant pain in the left calf. He also reports episodes of numbness and tingling. 2. He also has a history of deep vein thrombosis as well as pulmonary embolism and is on a heparin drip 3. Arterial ultrasound demonstrates a complete occlusion of the left distal superficial femoral artery. Recommend treatment with catheter arteriogram and revascularization. Procedures and involved risks, benefits and alternatives explained in detail to the patient and his daughter. They fully understand and consent and wished to proceed.
[2024-03-20] MEDS ORDERED: HEPA 1000U/500MLS 2,000 UNIT/1,000 ML BAG IV ONE (14:49)
[2024-03-20] MEDS ORDERED: LIDOCAINE 1% 20 ML MDV ONE (14:49)
[2024-03-20] MEDS ORDERED: MIDAZOLAM HCL 2 MG/2 ML INJ ONE (14:49)
[2024-03-20] MEDS ORDERED: HEPARIN 10,000 UNIT/10 ML VIAL IV ONE (14:49)
[2024-03-20] MEDS ORDERED: PROTAMINE SULF 50 MG/5ML INJ IV ONE (14:50)
[2024-03-20] MEDS ORDERED: FENTANYL CITR 100 MCG/2 ML ONE (14:50)
[2024-03-20] MEDS: NA CHLORIDE 0.9% 500 ML ONE (15:11)
--- NOTE | 2024-03-20 16:58 | P.OP ---
Date of Service: 03/20/24 Procedures performed 1. Right common femoral artery puncture under ultrasound guidance with placement of sheath 2. Left superficial femoral artery catheterization with left leg diagnostic arteriogram with run off of the foot 3. Left superficial femoral artery drug-coated balloon angioplasty and stenting 4. Hemostasis using the Mynx vascular closure device History The patient is a 63-year-old male with severe peripheral artery disease. He has complete 100% occlusion of the left superficial femoral artery. He has ischemic changes to the left leg. The patient is experiencing constant pain in his left calf. The pain is present at rest. He experiences burning as well as episodes of numbness. Findings are concerning for critical limb threatening ischemia. Patient presented for left a catheter arteriogram and revascularization. Dosimetry Radiation dose: Procedure was performed on a [facility] unit with fluoroscopy time of 6.6 min, DAP of 1092 mGy-m2 and entrance dose of 502 mGy. Sedation: Provided by the performing physician Drugs administered for sedation: 2 mg Versed IV, 100 mcg fentanyl IV Sedation time (minutes): 40 The performing physician was directly supervising a trained, independent observer, who was present throughout moderate sedation, and providing constant monitoring of the patient throughout moderate sedation, including monitoring the patient's level of consciousness as well as physiological status, including monitoring measurements of blood pressure, pulse oximetry, heart rhythm, and patient responsiveness. This observer had no other duties other than monitoring the patient. Contrast Volume: Isovue 50 ml Heparin administered IV during procedure for thromboembolism prophylaxis: 3000 units Estimated blood loss: Less than 10ml Procedure PROCEDURE: Lower extremity angiography and interventions Attending physician: Son Siddiqi MD Procedure Date (//yyyy): 03/20/2024 Pre-procedure diagnosis: Severe peripheral artery disease with ischemic rest pain, critical limb threatening ischemia Post-procedure diagnosis: Severe peripheral artery disease with ischemic rest pain, critical limb threatening ischemia Indication: Critical limb threatening ischemia, Josette stage 4 Complications: No immediate complications. PROCEDURE SUMMARY: - Arterial access Guidance: with ultrasound guidance - Unilateral: Unilateral leg lower extremity diagnostic angiography as described below - Arterial interventions as described below PROCEDURE DETAILS: Pre-procedure Consent: Informed consent for the procedure including risks, benefits and alternatives was obtained and time-out was performed prior to the procedure. Preparation: The site was prepared and draped using maximal sterile barrier technique including cutaneous antisepsis. Access Local anesthesia was administered. Vascular access was obtained Access guidance: Ultrasound access with permanent image stored. Real-time high resolution ultrasound was used with color, duplex and spectral techniques to evaluate the common femoral, dorsalis pedis and posterior tibial arteries. Arteries were used to assess for patency and suitability for puncture. Vascular puncture was performed under real time ultrasound visualization. Sheath size (Malay): 6 Access location: Right common femoral artery Access direction: Retrograde Access technique: Micropuncture set with 21 gauge needle Left lower extremity angiography and interventions Lower extremity arterial system was catheterized using a combination of 035 Navicross catheter and Glidewire 035 advantage Indication for angiography: Diagnostic - no prior angiographic study. Based on the results of the diagnostic angiogram, decision was made to proceed with interventions as described. The diagnostic angiogram was the basis for proceeding with the therapeutic procedure and interventions. Vessel catheterized: Left superficial femoral artery Findings: Left common and external iliac arteries are patent. Common femoral artery is patent. Superficial femoral artery is patent at its origin. There is complete 100% occlusion of the left mid superficial femoral artery for about 4 cm in length. The distal superficial femoral artery is reconstituted. There is complete 100% occlusion of the popliteal artery at the level of the knee joint. Collaterals reconstitute the posterior tibial and anterior tibial arteries at the mid calf. ~Lesion 1 ~Artery segment of target lesion: Left superficial femoral artery ~Lesion length (cm): 4 ~Percent stenosis (%): 100% complete total occlusion ~Technical details: The complete occlusion of the left mid thigh superficial femoral artery was crossed with a Glidewire advantage wire. It was then treated with angioplasty utilizing a 5 mm x 80 mm drug-coated balloon. Subsequent arteriogram demonstrated that there was still greater than 70% residual stenosis and therefore decision was made to place a stent. A 6 mm x 60 mm self-expanding stent was placed at the left mid thigh superficial femoral artery, with excellent results and no disease with stenosis. ~Treatment successful: Yes ~~Angioplasty ~~Angioplasty balloon type: Drug-coated ~~Angioplasty balloon: [employer] In.Pact Admiral 5mm x 80mm ~~Lot number: [id number] ~~Balloon length (mm): 80 ~~Balloon diameter (mm): 5mm ~~Balloon angioplasty inflation gogo: 8 ~~Balloon angioplasty inflation time: 3min ~~Stent ~~Stent type: Self-expanding ~~Stent: Alas absolute Pro ~~Lot number: [id number] ~~Stent length (mm): 60 ~~Stent diameter (mm): 6 ~Angiography ~Post-intervention angiography: After angioplasty and stenting, there is excellent patency to the superficial femoral artery with improved flow to the calf and foot Exam was then concluded, catheter and sheath removed and hemostasis achieved using Mynx vascular closure device. Patient was in good condition. Impression 1. Complete 100% occlusion of the left mid thigh superficial femoral artery treated with angioplasty and stenting with excellent results 2. Complete 100% occlusion of the below-knee popliteal artery and the proximal trifurcation vessels. Collaterals reconstitute the mid calf anterior tibial and posterior tibial arteries
[2024-03-20] MEDS: HEPARIN/D5W 25,000 UNIT/500 ML BAG IV SCH (21:57)
[2024-03-21 07:08] LABS: Anion Gap 8.8 mEq/L (5.0-15.0); Magnesium 1.7 mg/dL (1.6-2.4); Phosphorus 2.9 mg/dL (2.5-4.9); Potassium 3.8 mEq/L (3.5-5.1)
[2024-03-21 07:09] LABS: Absolute Basophils 0.1 K/uL (0-0.5); Absolute Eosinophils 0.1 K/uL (0-0.5); Absolute Lymphocytes (CBC) 1.5 K/uL (0.7-4.9); Absolute Monocytes 0.9 K/uL (0.1-1.3); Absolute Neutrophil 7.6 K/uL (1.8-8.0); Basophils % 0.7 % (0-1.3); Eosinophils % 1.2 % (0-4.4); Hematocrit 45.4 % (39.6-49.0); Hemoglobin 15.9 g/dL (13.6-17.9); MCH 33.4 pg (27.0-35.0); MCHC 35.1 g/dL (32.0-36.0); MCV 95.3 fL (80-100); MPV 8.9 fL (7.6-11.3); Neutrophils % 74.1 % (41.7-73.7); Nucleated Red Blood Cells % 0.1 % (0-0); Platelets 157 thou/uL (152-406); RBC Red Blood Cell Count 4.76 M/uL (4.33-5.43); Red Cell Distribution Width 12.6 % (12.1-15.2)
--- NOTE | 2024-03-21 09:23 | P.DS ---
Admission Date: 03/18/24 Discharge Date: 03/21/24 Disposition: ROUTINE DISCHARGE Discharge Condition: GOOD Reason for Admission: DVT, PE, femoral-popliteal artery occlusion Brief History of Present Illness: Ishaan Maldonado is a 63-year-old male with past medical history of diabetes mellitus, hypertension who presents to the ED with pain to his left leg for 2 weeks. Ishaan was seen by his PCP who referred him to Dr. Hernández's office for examination with Doppler and a stress test. Patient's son at the bedside reports his insurance denied those tests. His left leg continued to hurt, his son brought him to the ED for further evaluation. Arterial Doppler study reports occlusion of the distal superficial femoral and popliteal arteries, venous Doppler reports evidence of deep venous thrombosis of the popliteal vein and posterior tibial vein, CTA thorax reports predominantly subocclusive pulmonary emboli throughout the right lung lobes, no findings to suggest right heart strain. Laboratory evaluation grossly unremarkable. LLE positive for capillary refill and palpable pulse. Initial vitals BP 127 / 87; Pulse 115; Resp 18; Temp 97.9; Pulse Ox 98% on R/A Ishaan will be admitted to hospitalist service for further evaluation and t reatment of DVT and PE, Dr. Siddiqi consulted for procedure to left lower extremity. Hospital Course: Assessment Left lower extremity arterial occlusion (SFA and popliteal) and DVT PEs right lung Diabetes mellitus Hypertension Patient was admitted to the hospital for left lower extremity DVT, predominantly subocclusive pulmonary emboli throughout the right lung lobes as well as PAD of the left lower extremity with occlusion of the distal superficial femoral artery and popliteal arteries. He was started on heparin drip and was seen by vascular surgery who placed a stent to the superficial femoral artery. He has been transitioned to oral Xarelto, he will take Xarelto 15 mg p.o. twice daily for 21 days followed by Xarelto 20 mg daily until otherwise instructed by his PCP or vascular surgery. Other home medications will be continued as previously prescribed. Follow-up with vascular surgery Dr. Siddiqi as scheduled in 2 weeks, he will likely start aspirin at that time. Follow-up with your primary care doctor 1 to 2 weeks. Make sure you do not miss any doses of Xarelto and take medication as prescribed. The prescription has been sent to [facility] in the [place], confirmed availability and it should cost around $50 for you. Vital Signs/Physical Exam: Temp Pulse Resp BP Pulse Ox 97.8 F 98 H 18 125/74 98 03/21/24 04:00 03/21/24 04:00 03/21/24 04:00 03/21/24 04:00 03/21/24 04:00 General: Alert, In no apparent distress, Oriented x3 HEENT: Atraumatic, PERRLA Neck: Supple, JVD not distended Respiratory: Clear to auscultation bilaterally, Normal air movement Cardiovascular: Regular rate/rhythm, Normal S1 S2 Gastrointestinal: Normal bowel sounds, No tenderness Musculoskeletal: No tenderness Integumentary: No rashes Neurological: Normal speech, Normal affect Laboratory Data at Discharge: WBC 10.20 thou/uL (4.3-10.9) 03/21/24 06:45 Hgb 15.9 g/dL (13.6-17.9) D 03/21/24 06:45 Hct 45.4 % (39.6-49.0) 03/21/24 06:45 Plt Count 157 thou/uL (152-406) 03/21/24 06:45 PT 12.6 SECONDS (9.4-12.5) H 03/18/24 13:27 INR 1.20 03/18/24 13:27 APTT 57.6 SECONDS (24.3-36.9) H 03/21/24 06:45 Sodium 134 mEq/L (136-145) L D 03/21/24 06:45 Potassium 3.8 mEq/L (3.5-5.1) 03/21/24 06:45 BUN 12 mg/dL (7-18) 03/21/24 06:45 Creatinine 1.12 mg/dL (0.70-1.30) 03/21/24 06:45 Glucose 161 mg/dL (74-106) H 03/21/24 06:45 Phosphorus 2.9 mg/dL (2.5-4.9) 03/21/24 06:45 Magnesium 1.7 mg/dL (1.6-2.4) 03/21/24 06:45 Home Medications: Cyanocobalamin (Vitamin B-12) [Vitamin B-12] 1,000 mcg PO DAILY 03/19/24 Nebivolol HCl [Bystolic*] 20 mg PO DAILY 03/19/24 Olmesartan Medoxomil 40 mg PO DAILY 03/19/24 Tirzepatide [Mounjaro] 5 mg SQ [facility] 03/19/24 icosapent ethyL [Icosapent Ethyl] 2 cap PO BID 03/19/24 Rivaroxaban [Xarelto] 1 each PO [facility] #1 julio 03/21/24 New Medications: Rivaroxaban [Xarelto] 1 each PO [facility] #1 julio Physician Discharge Instructions: Patient was admitted to the hospital for left lower extremity DVT, predominantly subocclusive pulmonary emboli throughout the right lung lobes as well as PAD of the left lower extremity with occlusion of the distal superficial femoral artery and popliteal arteries. He was started on heparin drip and was seen by vascular surgery who placed a stent to the superficial femoral artery. He has been transitioned to oral Xarelto, he will take Xarelto 15 mg p.o. twice daily for 21 days followed by Xarelto 20 mg daily until otherwise instructed by his PCP or vascular surgery. Other home medications will be continued as previously prescribed. Follow-up with vascular surgery Dr. Siddiqi as scheduled in 2 weeks, he will likely start aspirin at that time. Follow-up with your primary care doctor 1 to 2 weeks. Make sure you do not miss any doses of Xarelto and take medication as prescribed. The prescription has been sent to [facility] in the [place], confirmed availability and it should cost around $50 for you. Diet: Regular Activity: Ad larry Followup: Demetrius Ennsi MD [Primary Care Provider] - 1-2 Weeks Son Siddiqi MD [ACTIVE - CAN ADMIT] - 1-2 Weeks Time spent managing pt's care (in minutes): 46
[2024-03-21] MEDS: POTASSIUM CL SA 10 MEQ TAB PO ONE (09:36)
[2024-03-21] MEDS: RIVAROXABAN 15 MG TABLET PO SCH (09:37)
[2024-03-21] MEDS: VALSARTAN 40 MG TAB PO SCH (09:49)
[2024-03-21] MEDS: MAGNESIUM SULFATE 1 gm IVPB 1 GM/100 ML BAG IV ONE (10:22)
[2024-03-21 18:52] LABS: Phosphatidylser & Prothrom IgG 16 U (<=30); Phosphatidylser & Prothrom IgM 14 U (<=30)
[2024-03-22 01:02] VITALS: BP 187/100
[2024-03-22 01:10] VITALS: TEMP 98.2
[2024-03-22 01:24] VITALS: O2SAT 97
[2024-03-22 07:18] LABS: Abnormal Protein Band 1 REPORT; Albumin, (SPE) 3.6 g/dL (3.8-4.8); Alpha-1-Globulins 0.4 g/dL (0.2-0.3); Alpha-2-Globulins 0.9 g/dL (0.5-0.9); Anti-Thrombin III Activity 105 % normal (80-135); Beta 1 Globulin 0.4 g/dL (0.4-0.6); INTERPRETATION REPORT; Total Protein 6.8 g/dL (6.1-8.1)
[2024-03-22] MEDS ORDERED: VALSARTAN 40 MG TAB PO SCH (09:00)
[2024-03-22 09:49] LABS: C-ANCA Anti-Proteinase 3 <1.0 AI (<1.0); P-ANCA Anti-Myeloperoxidase Ab <1.0 AI (<1.0)
[2024-03-22 13:18] LABS: Homocysteine 10.2 umol/L (<11.4)
[2024-03-25 13:28] LABS: Protein C Antigen 92 % normal (70-140)
[2024-03-25 22:38] LABS: Anti-Cardiolipin IgG Antibody <2.0 GPL-U/mL (<20.0); Anti-Cardiolipin IgM Antibody <2.0 MPL-U/mL (<20.0); Beta-2-Glycoprotein I IgA <2.0 U/mL (<20.0); Beta-2-Glycoprotein I IgG <2.0 U/mL (<20.0); Beta-2-Glycoprotein I IgM <2.0 U/mL (<20.0)
[2024-03-26 12:37] LABS: PGA INTERPRETATION REPORT; Prothrombin Gene Analysis Test NEGATIVE
[2024-03-26 15:30] LABS: Factor V (Leiden) Interp REPORT; Factor V (Leiden) Result NEGATIVE
== END 2024-03-21 12:35 | disposition home or self-care (01) | DRG 252 ==
LOC: ER 11:52 → ERHOLD 15:25 → 4TH 16:54
PROVIDERS: ADMIT Internal Medicine; ATTEND Hospitalist
PROC: 047L3D1 Dilation of Left Femoral Artery with Intraluminal Device, using Drug-Coated Balloon, Percutaneous Approach (ICD-10-PCS; principal; 2024-03-20)
PROC: B41G1ZZ Fluoroscopy of Left Lower Extremity Arteries using Low Osmolar Contrast (ICD-10-PCS; 2024-03-20)
DX: I82.412 Acute embolism and thrombosis of left femoral vein (principal); I26.99 Other pulmonary embolism without acute cor pulmonale; I82.432 Acute embolism and thrombosis of left popliteal vein; E11.51 Type 2 diabetes mellitus with diabetic peripheral angiopathy without gangrene; I10 Essential (primary) hypertension; F17.210 Nicotine dependence, cigarettes, uncomplicated
CPT/HCPCS: 36200; 36246; 36247; 36415; 37226; 70544; 70549; 71275; 76937; 80048; 81001; 81240; 81241; 82306; 82607; 82947; 83090; 83516; 83735; 84100; 84165; 85025; 85300; 85302; 85305; 85306; 85610; 85730; 86021; 86146; 86147; 86592; 86593; 87086; 87088; 92523; 93926; 93971; 96365; 97161; 99152; 99285; A9577; C1725; C1760; C1769; C1893; J1644; J2003; J2250; J2720; J3010; J3475; J7030; J7040; Q9967

== ENCOUNTER 2024-07-11 01:02 | Emergency (ER) | payer BC, OTHER ==
[2024-07-11] MEDS ORDERED: ONDANSETRON 4 MG/2 ML VIAL ONE (01:32)
[2024-07-11] MEDS ORDERED: PANTOPRAZOLE 40 MG INJ ONE (01:33)
[2024-07-11] MEDS ORDERED: MORPHINE 4 MG/ML SYR ONE (01:33)
[2024-07-11] MEDS ORDERED: NA CHLORIDE 0.9% 1,000 ML ONE (01:33)
[2024-07-11] MEDS ORDERED: FAMOTIDINE 20 MG/2 ML VIAL IV ONE (01:33)
[2024-07-11 01:44] LABS: PT Prothrombin Time 15.9 SECONDS (10-13.0); Protime INR 1.42
[2024-07-11 01:45] LABS: Absolute Basophils 0.1 K/uL (0-0.5); Absolute Eosinophils 0.1 K/uL (0-0.5); Absolute Lymphocytes (CBC) 2.2 K/uL (0.7-4.9); Absolute Monocytes 1.7 K/uL (0.1-1.3); Basophils % 0.8 % (0-1.3); Eosinophils % 0.5 % (0-4.4); Hematocrit 37.5 % (39.6-49.0); Hemoglobin 12.8 g/dL (13.6-17.9); Lymphocytes % 12.3 % (15.3-44.8); MCH 31.4 pg (27.0-35.0); MCV 92.2 fL (80-100); Monocytes % 9.3 % (3.3-12.3); Neutrophils % 77.1 % (41.7-73.7); Platelets 257 thou/uL (152-406); RBC Red Blood Cell Count 4.07 M/uL (4.33-5.43); Red Cell Distribution Width 13.3 % (12.1-15.2)
[2024-07-11 01:54] LABS: Albumin 3.4 g/dL (3.4-5.0); Albumin/Globulin Ratio 0.8 (1.1-1.8); Bilirubin Total 0.4 mg/dL (0.2-1.0); Globulin 4.4 g/dL (2.3-3.5); Protein, Total 7.8 g/dL (6.4-8.2)
--- NOTE | 2024-07-11 04:39 | EDPHYS ---
Physician Documentation [facility] Name: Ishaan Maldonado Age: 63 yrs Sex: Male : 1960 Arrival Date: 07/11/2024 Time: 01:02 Bed 16 Private MD: Demetrius Ennis B ED Physician Enrique Adkins HPI: 07/11 01:07 This 63 yrs old Male presents to ER via Unassigned with complaints of Leg sp4 Swelling, Abdominal Pain, Bloody Stools. 03:23 Patient presents with acute generalized weakness, abdominal cramps, bloody diarrhea. sp4 Bloody diarrhea started in the past 24 hours.. Recent admission to [facility] 06/17/2024 through 07/02/2024 at [facility]. Patient's medications include aspirin 81 mg daily, nicotine patch daily, tramadol 50 mg as needed, Nebivolol 10 mg p.o. daily, Vascepa 2 g 2 times a day, Namenda 5 mg daily, Mounjaro 5 mg every week, evolocumab 140 mg every 14 days , rivaroxaban 20 mg 6 daily, sertraline 50 mg daily. Patient had apparently left popliteal artery stent occlusion found on 06/17/2024. Patient was also found partial deep venous obstruction in the popliteal vein on 06/17/2024 on the left side . CT angiography with left runoff has revealed popliteal artery on the left side stent graft in the proximal segment is occluded. Tibioperoneal trunk occluded. Revealing just beyond the origin of anterior tibial artery and patent throughout anterior tibial artery. Left popliteal vein tibial peroneal trunk consistent with age-indeterminate DVT. In conclusion patient was diagnosed with occlusion of the left popliteal artery stent extending into the tibioperoneal trunk with refueling at the origin of the anterior tibial and posterior tibial and peroneal arteries. Moderate stenosis in the proximal left superficial femoral artery. Patent stent in the distal left superficial femoral artery without stenosis. No significant stenosis in the right lower extremity. Left popliteal vein thrombus. Patient then had creation of bypass left arterial femoral to tibial or any other orders left femoral AT bypass by Dr. Jose Juan Fish, on 06/27/2024.. Historical: - Allergies: 01:33 No Known Allergies; vc1 - Home Meds: 01:33 aspirin 81 mg oral tablet,chewable [Active]; nicotine 14 mg/24 hr TD patch, transdermal vc1 24 hours [Active]; tramadol 50 mg Oral tablet every 6 hours [Active]; nebivolol 10 mg oral tablet daily [Active]; icosapent ethyl 1 gram oral capsule 2 caps 2 times per day [Active]; memantine 5 mg oral tablet 2 times per day [Active]; Mounjaro 5 mg/0.5 mL subcutaneous Pen Injector every week [Active]; Repatha SureClick 140 mg/mL subcutaneous Pen Injector 140 mg every 2 weeks [Active]; rivaroxaban 20 mg oral tablet daily [Active]; sertraline 50 mg oral tablet daily [Active]; - PMHx: 01:33 diabetes mellitus; Hypertensive disorder; Dementia; vc1 - PSHx: 01:33 femoral popliteal bypass; vc1 - Immunization history:: Adult Immunizations up to date. - Infectious Disease History:: Denies. - Social history:: Smoking status: Patient/guardian denies using tobacco, Stopped _ months ago .25. - Family history:: not pertinent. ROS: 04:04 Constitutional: Negative for fever, chills, and weight loss, positive for left leg sp4 swelling after recent femoral to tibial artery bypass, positive for bloody stools positive for abdominal pain 04:04 All other systems are negative, Exam: 04:04 Constitutional: This is a well developed, well nourished patient who is awake, alert, sp4 and in no acute distress. Head/Face: Normocephalic, atraumatic. Eyes: Pupils equal round and reactive to light, extra-ocular motions intact. Lids and lashes normal. Conjunctiva and sclera are not injected. Cornea within normal limits. Periorbital areas with no swelling, redness, or edema. ENT: Nares patent. No nasal discharge, no septal abnormalities noted. Tympanic membranes are normal and external auditory canals are clear. Oropharynx with no redness, swelling, or masses, exudates, or evidence of obstruction, uvula midline. Mucous membranes moist. Neck: Trachea midline, no thyromegaly or masses palpated, and no cervical lymphadenopathy. Supple, full range of motion without nuchal rigidity, or vertebral point tenderness. Chest/axilla: Normal chest wall appearance and motion. Nontender with no deformity. No lesions are appreciated. Cardiovascular: Regular rate and rhythm with a normal S1 and S2. No gallops, murmurs, or rubs. Normal PMI, no JVD. No pulse deficits. Respiratory: Lungs have equal breath sounds bilaterally, clear to auscultation and percussion. No rales, rhonchi or wheezes noted. No increased work of breathing, no retractions or nasal flaring. Abdomen/GI: Soft, with normal bowel sounds. No distension or tympany. No guarding or rebound. No evidence of tenderness throughout. Back: No spinal tenderness. No costovertebral tenderness. Skin: Warm, dry with normal turgor. Normal color with no rashes, no lesions, and no evidence of cellulitis. MS/ Extremity: Pulses equal, no cyanosis. Neurovascular intact. Full, normal range of motion. Neuro: Awake and alert, GCS 15, oriented to person, place, time, and situation. Cranial nerves II-XII grossly intact. Motor strength 5/5 in all extremities. Sensory grossly intact. Psych: Awake, alert, with orientation to person, place and time. Behavior, mood, and affect are within normal limits Vital Signs: 01:27 BP 128 / 83; Pulse 92; Resp 14; Temp 98.2; Pulse Ox 98% ; Weight 79.83 kg; Height 5 ft. vc1 11 in. ; Pain 7/10; 02:38 BP 124 / 83; Pulse 87; Resp 18; Temp 98.2; Pulse Ox 100% ; Pain 0/10; bm8 03:00 BP 106 / 76; Pulse 85; Resp 18; Temp 98.2; Pulse Ox 97% ; Pain 0/10; bm8 04:12 BP 107 / 68; Pulse 79; Resp 18; Temp 98.2; Pulse Ox 96% ; Pain 0/10; bm8 01:27 Body Mass Index 24.55 (79.83 kg, 180.34 cm) vc1 01:27 Pain Scale: Adult vc1 02:38 Pain Scale: Adult bm8 03:00 Pain Scale: Adult bm8 04:12 Pain Scale: Adult bm8 [place] Coma Score: 02:38 Eye Response: spontaneous(4). Motor Response: obeys commands(6). Verbal Response: bm8 oriented(5). Total: 15. 03:00 Eye Response: to voice(3). Motor Response: obeys commands(6). Verbal Response: bm8 oriented(5). Total: 14. 04:04 Eye Response: spontaneous(4). Motor Response: obeys commands(6). Verbal Response: sp4 oriented(5). Total: 15. 04:12 Eye Response: to voice(3). Motor Response: obeys commands(6). Verbal Response: bm8 oriented(5). Total: 14. MDM: 03:16 Medical Screening Exam initiated sp4 04:04 Differential diagnosis: cholecystitis, diverticulitis, gastritis, gastroesophageal sp4 reflux disease, GI Bleed, Hepatitis, pancreatitis. Data reviewed: vital signs, nurses notes, lab test result(s), radiologic studies, CT scan. 04:30 ED course: CLINICAL HISTORY: Abdominal pain. COMPARISON: 06/18/2024. TECHNIQUE: sp4 CTABDOMEN PELVIS WITH IV CONTRAST on 07/11/2024 1:25 AM CDT This exam was performed according to our departmental dose-optimization program, which includes automated exposure control, adjustment of the mA and/or kV according to patient size and/or use of iterative reconstruction technique. FINDINGS: Lower lungs are clear. Abdomen: The liver is normal in appearance. There is no biliary dilatation. Gallbladder is normal in appearance. The pancreas and spleen are normal in appearance. There is a 4 mm lower pole right renal calculus. Adrenal glands are normal. There is no hydronephrosis. Abdominal aorta is normal in course and caliber without aneurysm. There is no free air. There is no retroperitoneal adenopathy. Pelvis: There is large amount of stool throughout the colon, especially distally. Urinary bladder is unremarkable. There is no free fluid. Appendix is normal. Skeleton: There are no acute osseous findings. No suspicious bony lesions. IMPRESSION: Constipation. Right nephrolithiasis without hydronephrosis. . 04:44 Consideration of Admission/Observation Escalation of care including sp4 admission/observation considered. ED course: Left lower extremity likely swollen from recent surgery 06/27/2024 left lower extremity femoral to tibial artery bypass. Also this pertains to recent diagnosis of left popliteal vein DVT. Patient advised to continue all of his home medications including aspirin and Xarelto. Patient also has significant constipation on a CAT scan without signs of colitis. Unlikely patient has clostridial colitis. Patient advised to try MiraLAX daily at home for constipation. At this time there is no indication to discontinue blood thinners. Patient stable for discharge home otherwise no additional findings that are all emergent nature. 07/11 01:25 Order name: CBC with Diff; Complete Time: 03:15 sp4 07/11 01:25 Order name: CMP; Complete Time: 03:15 sp4 07/11 01:25 Order name: Lipase; Complete Time: 03:15 sp4 07/11 01:27 Order name: PT-INR; Complete Time: 03:15 sp4 07/11 01:25 Order name: CT Abd/Pelvis - IV Contrast Only sp4 07/11 01:25 Order name: IV Saline Lock; Complete Time: sp4 07/11 01:25 Order name: Labs collected and sent; Complete Time: sp4 Administered Medications: 01:44 Drug: Famotidine IVP 20 mg IVP once; dilute with 10 mL 0.9% NaCl; give over 2 minutes bm8 Route: IVP; Site: right antecubital; 02:40 Follow up: Response: No adverse reaction bm8 01:44 Drug: Pantoprazole IVP 80 mg IVP once Route: IVP; Site: right antecubital; bm8 02:40 Follow up: Response: No adverse reaction bm8 01:45 Drug: Ondansetron IVP 4 mg IVP once; over 2 minutes Route: IVP; Site: right antecubital;bm8 02:40 Follow up: Response: No adverse reaction bm8 01:45 Drug: morphine IVP or IV 4 mg IVP once over 4 mins Route: IVP; Infused Over: 4 mins; bm8 Site: right antecubital; 02:40 Follow up: Response: No adverse reaction bm8 01:45 Drug: NS 0.9% IV 1000 ml IV at 1 bolus Per protocol; to be given as a bolus over 60 bm8 minutes Route: IV; Rate: 1 bolus; Site: right antecubital; 02:40 Follow up: Response: No adverse reaction; IV Status: Completed infusion bm8 Disposition Summary: 07/11/24 04:39 Discharge Ordered Notes: Location: Home sp4 Problem: new sp4 Symptoms: have improved sp4 Condition: Stable sp4 Diagnosis - Constipation, unspecified sp4 - Bloody stools, postoperative left lower extremity swelling. sp4 - Acute lower abdominal pain sp4 Followup: sp4 - With: Demetrius Ennis MD - When: 10 - 14 days - Reason: Recheck today's complaints Discharge Instructions: - Discharge Summary Sheet sp4 - Constipation, Adult, [id number] sp4 Forms: - Patient Portal Instructions sp4 Prescriptions: - Miralax 17 gram Oral powder in packet - take 1 packet ORAL route daily PRN constipation; 12 packet; Refills: 0, Product sp4 Selection Permitted Signatures: Dispatcher [employer] EDMS Kristy Gonzales, RN RN vc1 Enrique Adkins MD MD sp4 Alvin Hopkins, RN RN bm8 Corrections: (The following items were deleted from the chart) 01:26 01:26 CBC+H.LAB.BRZ ordered. EDMS EDMS 01:26 01:26 COMPREHENSIVE METABOLIC PANEL+C.LAB.BRZ ordered. EDMS EDMS 01:26 01:26 LIPASE+C.LAB.BRZ ordered. EDMS EDMS
--- NOTE | 2024-07-11 04:39 | ER ---
Nurse's Notes [facility] Name: sIhaan Maldonado Age: 63 yrs Sex: Male : 1960 Arrival Date: 07/11/2024 Time: 01:02 Bed 16 Private MD: Demetrius Ennis B Diagnosis: Constipation, unspecified;Bloody stools, postoperative left lower extremity swelling.;Acute lower abdominal pain Presentation: 07/11 01:27 Chief complaint: Patient states: Left leg swelling, right abdominal pain, diarrhea and vc1 blood in stool. Coronavirus screen: Client denies travel out of the [place] in the last 14 days. At this time, the client does not indicate any symptoms associated with coronavirus-19. Ebola Screen: Patient negative for fever greater than or equal to 101.5 degrees Fahrenheit, and additional compatible Ebola Virus Disease symptoms Patient denies exposure to infectious person. Patient denies travel to an Ebola-affected area in the 21 days before illness onset. No symptoms or risks identified at this time. Initial Sepsis Screen: Does the patient meet any 2 criteria? No. Patient's initial sepsis screen is negative. Does the patient have a suspected source of infection? No. Patient's initial sepsis screen is negative. Risk Assessment: Do you want to hurt yourself or someone else? Patient reports no desire to harm self or others. Onset of symptoms was July 11, 2024. 01:27 Method Of Arrival: Ambulatory vc1 01:27 Acuity: MAX 3 vc1 Triage Assessment: 01:25 General: Appears in no apparent distress. comfortable, Behavior is calm, cooperative, bm8 appropriate for age. Pain: Complains of pain in abdomen Pain currently is 7 out of 10 on a pain scale. EENT: No deficits noted. No signs and/or symptoms were reported regarding the EENT system. Neuro: No deficits noted. Level of Consciousness is awake, alert, obeys commands, Oriented to person, place, time, situation, Appropriate for age. Cardiovascular: Denies chest pain, Heart tones S1 S2 present Capillary refill < 3 seconds fingers. Cardiovascular: Edema is 1+ to left midcalf, left ankle, left foot and left toes pitting to left midcalf, left ankle and left foot. Respiratory: Airway is patent. GI: Abdomen is flat, Bowel sounds present X 4 quads. Reports cramping, diarrhea, bloody stool, Pain is 7 out of 10 on a pain scale. : No signs and/or symptoms were reported regarding the genitourinary system. Derm: No signs and/or symptoms reported regarding the dermatologic system. Musculoskeletal: No signs and/or symptoms reported regarding the musculoskeletal system. Historical: - Allergies: 01:33 No Known Allergies; vc1 - Home Meds: 01:33 aspirin 81 mg oral tablet,chewable [Active]; nicotine 14 mg/24 hr TD patch, transdermal vc1 24 hours [Active]; tramadol 50 mg Oral tablet every 6 hours [Active]; nebivolol 10 mg oral tablet daily [Active]; icosapent ethyl 1 gram oral capsule 2 caps 2 times per day [Active]; memantine 5 mg oral tablet 2 times per day [Active]; Mounjaro 5 mg/0.5 mL subcutaneous Pen Injector every week [Active]; Repatha SureClick 140 mg/mL subcutaneous Pen Injector 140 mg every 2 weeks [Active]; rivaroxaban 20 mg oral tablet daily [Active]; sertraline 50 mg oral tablet daily [Active]; - PMHx: 01:33 diabetes mellitus; Hypertensive disorder; Dementia; vc1 - PSHx: 01:33 femoral popliteal bypass; vc1 - Immunization history:: Adult Immunizations up to date. - Infectious Disease History:: Denies. - Social history:: Smoking status: Patient/guardian denies using tobacco, Stopped _ months ago .25. - Family history:: not pertinent. Screenin:39 [facility] ED Fall Risk Assessment (Adult) History of falling in the last 3 months, vc1 including since admission No falls in past 3 months (0 pts) Confusion or Disorientation No (0 pts) Intoxicated or Sedated No (0 pts) Impaired Gait No (0 pts) Mobility Assist Device Used No (0 pt) Altered Elimination No (0 pt) Score/Fall Risk Level 0 - 2 = Low Risk Oriented to surroundings, Maintained a safe environment, Educated pt \T\ family on fall prevention, incl call for assistance when getting out of bed, Provided non-skid footwear, Hourly rounding (assess needs \T\ fall precautionary measures) done. Abuse screen: Denies threats or abuse. Nutritional screening: No deficits noted. Tuberculosis screening: No symptoms or risk factors identified. Assessment: 02:38 Reassessment: Patient appears in no apparent distress at this time. Patient and/or bm8 family updated on plan of care and expected duration. Pain level reassessed. Patient is alert, oriented x 3, equal unlabored respirations, skin warm/dry/pink. Patient denies pain at this time. Patient states feeling better. Patient states symptoms have improved. GI: Abdomen is flat, non-distended, Abd is soft and non tender X 4 quads. 03:00 Reassessment: Patient appears in no apparent distress at this time. Patient and/or bm8 family updated on plan of care and expected duration. Pain level reassessed. Patient is alert, oriented x 3, equal unlabored respirations, skin warm/dry/pink. pt is resting with eyes closed breathing is even unlabored with symmetrical rise and fall of chest Patient denies pain at this time. Patient states feeling better. Patient states symptoms have improved. 04:12 Reassessment: Patient appears in no apparent distress at this time. No changes from bm8 previously documented assessment. Patient and/or family updated on plan of care and expected duration. Pain level reassessed. Patient denies pain at this time. Patient states feeling better. Patient states symptoms have improved. Vital Signs: 01:27 BP 128 / 83; Pulse 92; Resp 14; Temp 98.2; Pulse Ox 98% ; Weight 79.83 kg; Height 5 ft. vc1 11 in. ; Pain 7/10; 02:38 BP 124 / 83; Pulse 87; Resp 18; Temp 98.2; Pulse Ox 100% ; Pain 0/10; bm8 03:00 BP 106 / 76; Pulse 85; Resp 18; Temp 98.2; Pulse Ox 97% ; Pain 0/10; bm8 04:12 BP 107 / 68; Pulse 79; Resp 18; Temp 98.2; Pulse Ox 96% ; Pain 0/10; bm8 01:27 Body Mass Index 24.55 (79.83 kg, 180.34 cm) vc1 01:27 Pain Scale: Adult vc1 02:38 Pain Scale: Adult bm8 03:00 Pain Scale: Adult bm8 04:12 Pain Scale: Adult bm8 [place] Coma Score: 02:38 Eye Response: spontaneous(4). Motor Response: obeys commands(6). Verbal Response: bm8 oriented(5). Total: 15. 03:00 Eye Response: to voice(3). Motor Response: obeys commands(6). Verbal Response: bm8 oriented(5). Total: 14. 04:04 Eye Response: spontaneous(4). Motor Response: obeys commands(6). Verbal Response: sp4 oriented(5). Total: 15. 04:12 Eye Response: to voice(3). Motor Response: obeys commands(6). Verbal Response: bm8 oriented(5). Total: 14. ED Course: 01:05 Patient arrived in ED. gm2 01:06 Demetrius Ennis MD is Private Physician. gm2 01:07 Enrique Adkins MD is Attending Physician. sp4 01:13 Alvin Hopkins, RN is Primary Nurse. bm8 01:24 Served as a cold header operator during rectal exam. Inserted saline lock: 20 gauge in right bm8 antecubital area, using aseptic technique. Blood collected. Flushed with 10 mL NS. 01:33 Triage completed. vc1 01:39 Arm band placed on right wrist. vc1 01:40 Patient has correct armband on for positive identification. Bed in low position. Call vc1 light in reach. Provided Education on: Plan of care. Pulse ox on. NIBP on. 02:27 CT Abd/Pelvis - IV Contrast Only In Process Unspecified. EDMS 04:35 Demetrius Ennis MD is Referral Physician. sp4 04:44 IV discontinued, intact, bleeding controlled, No redness/swelling at site. Pressure bm8 dressing applied. Administered Medications: 01:44 Drug: Famotidine IVP 20 mg IVP once; dilute with 10 mL 0.9% NaCl; give over 2 minutes bm8 Route: IVP; Site: right antecubital; 02:40 Follow up: Response: No adverse reaction bm8 01:44 Drug: Pantoprazole IVP 80 mg IVP once Route: IVP; Site: right antecubital; bm8 02:40 Follow up: Response: No adverse reaction bm8 01:45 Drug: Ondansetron IVP 4 mg IVP once; over 2 minutes Route: IVP; Site: right antecubital;bm8 02:40 Follow up: Response: No adverse reaction bm8 01:45 Drug: morphine IVP or IV 4 mg IVP once over 4 mins Route: IVP; Infused Over: 4 mins; bm8 Site: right antecubital; 02:40 Follow up: Response: No adverse reaction bm8 01:45 Drug: NS 0.9% IV 1000 ml IV at 1 bolus Per protocol; to be given as a bolus over 60 bm8 minutes Route: IV; Rate: 1 bolus; Site: right antecubital; 02:40 Follow up: Response: No adverse reaction; IV Status: Completed infusion bm8 Medication: 01:40 VIS not applicable for this client. vc1 Outcome: 04:39 Discharge ordered by . sp4 04:44 Discharged to home ambulatory, with family, bm8 04:44 Condition: stable 04:44 Discharge instructions given to patient, family, Instructed on discharge instructions, follow up and referral plans. no drinking with medication, no driving heavy equipment, medication usage, safety practices, Demonstrated understanding of instructions, follow-up care, medications, Prescriptions given X 1, 04:46 Patient left the ED. bm8 Signatures: Dispatcher [employer] EDMS Kristy Gonzales RN RN vc1 Enrique Adkins MD MD sp4 Marsha Stallings gm2 Alvin Hopkins, RN RN bm8
[2024-07-11 05:01] VITALS: TEMP 98.2
--- NOTE | 2024-07-11 05:06 | RAD REPORT ---
CLINICAL HISTORY: Abdominal pain. COMPARISON: 06/18/2024. TECHNIQUE: CT ABDOMEN PELVIS WITH IV CONTRAST on 07/11/2024 1:25 AM CDT This exam was performed according to our departmental dose-optimization program, which includes autom ated exposure control, adjustment of the mA and/or kV according to patient size and/or use of iterative reconstruction technique. FINDINGS: Lower lungs are clear. Abdomen: The liver is normal in appearance. There is no biliary dilatation. Gallbladder is normal in appearance. The pancreas and spleen are normal in appearance. There is a 4 mm lower pole right renal calculus. Adrenal glands are normal. There is no hydronephrosis. Abdominal aorta is normal in course and caliber without aneurysm. There is no free air. There is no r etroperitoneal adenopathy. Pelvis: There is large amount of stool throughout the colon, especially distally. Urinary bladder is unremarkable. There is no free fluid. Appendix is normal. Skeleton: There are no acute osseous findings. No suspicious bony lesions. IMPRESSION: Constipation. Right nephrolithiasis without hydronephrosis. Electronically signed by: Sriram Gutierrez MD 07/11/2024 04:05 AM CDT RP Due to temporary technical issues with the PACS/EadBox reporting system, reports are being santi d by the in-house radiologist without review as a courtesy to ensure prompt reporting the interpreting radiologist is fully responsible for the content of the report. Transcribed Date/Time: 07/11/2024 5:06 AM
[2024-07-11 05:17] VITALS: BP 107/68; O2SAT 96
== END 2024-07-11 04:46 | disposition home or self-care (01) ==
LOC: ER 01:02
DX: K59.00 Constipation, unspecified (principal); K92.1 Melena; R22.42 Localized swelling, mass and lump, left lower limb; Z98.890 Other specified postprocedural states; Z95.820 Peripheral vascular angioplasty status with implants and grafts; Z79.82 Long term (current) use of aspirin
CPT/HCPCS: 96361; 85025; 36415; 85610; 83690; 80053; 74177; 96375; 96374; 99284; Q9967; J2470; J2405; J7030

== ENCOUNTER 2024-07-12 15:22 | Emergency (ER) | payer BC ==
[2024-07-12 17:46] LABS: Absolute Basophils 0.1 K/uL (0-0.5); Absolute Eosinophils 0.1 K/uL (0-0.5); Absolute Lymphocytes (CBC) 1.9 K/uL (0.7-4.9); Absolute Monocytes 1.1 K/uL (0.1-1.3); Absolute Neutrophil 8.2 K/uL (1.8-8.0); Eosinophils % 1.3 % (0-4.4); Hematocrit 36.2 % (39.6-49.0); Hemoglobin 12.5 g/dL (13.6-17.9); Lymphocytes % 16.2 % (15.3-44.8); MCH 31.5 pg (27.0-35.0); MCHC 34.5 g/dL (32.0-36.0); MCV 91.2 fL (80-100); MPV 8.6 fL (7.6-11.3); Monocytes % 9.4 % (3.3-12.3); Neutrophils % 72.1 % (41.7-73.7); Nucleated Red Blood Cells % 0.1 % (0-0); Platelets 265 thou/uL (152-406); RBC Red Blood Cell Count 3.97 M/uL (4.33-5.43); Red Cell Distribution Width 13.5 % (12.1-15.2)
[2024-07-12 18:03] LABS: Albumin 3.3 g/dL (3.4-5.0); Albumin/Globulin Ratio 0.8 (1.1-1.8); Bilirubin Total 0.3 mg/dL (0.2-1.0); Globulin 4.4 g/dL (2.3-3.5); Protein, Total 7.7 g/dL (6.4-8.2)
[2024-07-12 18:07] LABS: Protime INR 2.09
--- NOTE | 2024-07-12 19:39 | EDPHYS ---
Physician Documentation [facility] Name: Ishaan Maldonado Age: 63 yrs Sex: Male : 1960 Arrival Date: 07/12/2024 Time: 15:22 Bed 6 Private MD: ED Physician Grover Whittaker HPI: 07/12 16:19 This 63 yrs old Male presents to ER via Wheelchair with complaints of Abdominal Pain, ms3 Rectal Bleeding. 16:19 63-year-old male with past medical history of diabetes, hypertension, dementia presents ms3 to the emergency department for rectal bleeding that began on Monday. Patient was seen in the emergency department and diagnosed with constipation and instructed to use MiraLAX. Patient's daughter states patient has had approximately 15 bloody bowel movements today. Patient is complaining of right lower quadrant abdominal pain.. Historical: - Allergies: 15:54 No Known Allergies; iw - PMHx: 15:54 diabetes mellitus; Hypertensive disorder; Dementia; iw - PSHx: 15:54 femoral popliteal bypass; iw - Immunization history:: Adult Immunizations up to date. - Infectious Disease History:: Denies. - Social history:: Smoking status: Patient denies any tobacco usage or history of. ROS: 16:19 Constitutional: Negative for fever, and chills. Cardiovascular: Negative for chest ms3 pain, and palpitations. Respiratory: Negative for shortness of breath, cough, wheezing, and pleuritic chest pain, 16:19 Skin: Negative for injury, rash, and discoloration, 16:19 Abdomen/GI: Positive for abdominal pain, rectal bleeding, Exam: 16:19 Constitutional: This is a well developed, well nourished patient who is awake, alert, ms3 and in no acute distress. Cardiovascular: Regular rate and rhythm with a normal S1 and S2. No gallops, murmurs, or rubs. Normal PMI, no JVD. No pulse deficits. Respiratory: Lungs have equal breath sounds bilaterally, clear to auscultation and percussion. No rales, rhonchi or wheezes noted. No increased work of breathing, no retractions or nasal flaring. Skin: Warm, dry with normal turgor. Normal color with no rashes, no lesions, and no evidence of cellulitis. 16:19 Abdomen/GI: Inspection: abdomen appears normal, Bowel sounds: normal, Palpation: moderate abdominal tenderness, in the right lower quadrant, Vital Signs: 15:53 BP 125 / 73; Pulse 90; Resp 16; Temp 98; Pulse Ox 96% on R/A; Weight 80.29 kg; Height 5 iw ft. 11 in. ; Pain 10/10; 19:26 BP 144 / 87; Pulse 89; Resp 17; Temp 98; Pulse Ox 99% ; Pain 0/10; bm8 20:59 BP 140 / 87; Pulse 88; Resp 18; Temp 98; Pulse Ox 99% ; Pain 0/10; bm8 22:56 BP 135 / 90; Pulse 91; Resp 16; Temp 98; Pulse Ox 99% ; Pain 0/10; bm8 23:47 BP 131 / 80; Pulse 90; Resp 17; Temp 98; Pulse Ox 96% ; Pain 0/10; bm8 15:53 Body Mass Index 24.69 (80.29 kg, 180.34 cm) iw 15:53 Pain Scale: Adult iw 19:26 Pain Scale: Adult bm8 20:59 Pain Scale: Adult bm8 22:56 Pain Scale: Adult bm8 23:47 Pain Scale: Adult bm8 Ashwin Coma Score: 19:26 Eye Response: spontaneous(4). Motor Response: obeys commands(6). Verbal Response: bm8 oriented(5). Total: 15. 20:59 Eye Response: spontaneous(4). Motor Response: obeys commands(6). Verbal Response: bm8 oriented(5). Total: 15. 22:56 Eye Response: spontaneous(4). Motor Response: obeys commands(6). Verbal Response: bm8 oriented(5). Total: 15. MDM: 15:59 Medical Screening Exam initiated ms3 16:19 Differential diagnosis: hemorrhoids, fissure, Constipation versus diverticulitis. ms3 21:08 Data reviewed: vital signs, nurses notes, lab test result(s), radiologic studies, and ms3 as a result, I will Transfer as we do not have GI paper conservator. Consideration of Admission/Observation Patient transferred secondary to GI not paper conservator. Management of patient was discussed with the following: Hospitalist: Dr Yeung. Care significantly affected by the following chronic conditions: Diabetes, Hypertension. Counseling: I had a detailed discussion with the patient and/or guardian regarding the historical points, exam findings, and any diagnostic results supporting the discharge/admit diagnosis, lab results, radiology results, the need to transfer to another facility, [facility] does not immediately have the required specialist. ED course: Patient remained hemodynamically stable in the emergency department.. 07/12 15:59 Order name: CBC with Diff; Complete Time: 18:39 ms3 07/12 15:59 Order name: CMP; Complete Time: 18:39 ms3 07/12 15:59 Order name: Lipase; Complete Time: 18:39 ms3 07/12 15:59 Order name: PT-INR; Complete Time: 18:39 ms3 07/12 17:25 Order name: Type And Screen; Complete Time: 18:39 1 07/12 16:01 Order name: CT Abdomen - Angio: CTA abdomen and Pelvis ms3 07/12 18:32 Order name: Pelvis Angio EDMS 07/12 15:59 Order name: IV Saline Lock; Complete Time: 17:48 ms3 07/12 15:59 Order name: Labs collected and sent; Complete Time: 17:48 ms3 Administered Medications: 07/13 00:01 Drug: morphine IVP or IV 4 mg IVP once over 4 mins Route: IVP; Infused Over: 4 mins; bm8 Site: right antecubital; 00:02 Follow up: Response: Medication Administered at Departure bm8 00:01 Drug: Ondansetron IVP 4 mg IVP once; over 2 minutes Route: IVP; Site: right antecubital;bm8 00:02 Follow up: Response: Medication Administered at Departure bm8 Disposition Summary: 07/12/24 19:38 Transfer Ordered Notes: Transfer Location: [facility] ms3 Reason: Higher level of care ms3 Condition: Stable ms3 Problem: new ms3 Symptoms: are unchanged ms3 Accepting Physician: (07/13/24 00:04) bm8 Diagnosis - GI Bleed/ Gastrointestinal hemorrhage, unspecified ms3 - Anemia, unspecified ms3 - Essential (primary) hypertension ms3 Forms: - Medication Reconciliation Form ms3 - SBAR form ms3 Signatures: Dispatcher [employer] EDMamie Fan RN RN iw Grover Whittaker DO DO ms3 Ashley Whittaker RN RN ld1 Alvin Hopkins RN RN bm8 Corrections: (The following items were deleted from the chart) 07/12 16:02 16:02 Abdomen Angio+CT.RAD.MARTINZ ordered. EDMS EDMS 07/13 00:04 07/12 19:38 Dr cabrera3 bm8
--- NOTE | 2024-07-12 19:39 | ER ---
Nurse's Notes [facility] Name: Ishaan Maldonado Age: 63 yrs Sex: Male : 1960 Arrival Date: 07/12/2024 Time: 15:22 Bed 6 Private MD: Diagnosis: GI Bleed/ Gastrointestinal hemorrhage, unspecified;Anemia, unspecified;Essential (primary) hypertension Presentation: 07/12 15:53 Chief complaint: Patient states: was seen here morning for rectal bleeding, iw still having bleeding and pain, has not had a BM , ws told to take Miralax. Coronavirus screen: At this time, the client does not indicate any symptoms associated with coronavirus-19. Ebola Screen: No symptoms or risks identified at this time. Initial Sepsis Screen: Does the patient meet any 2 criteria? No. Patient's initial sepsis screen is negative. Does the patient have a suspected source of infection? No. Patient's initial sepsis screen is negative. Risk Assessment: Do you want to hurt yourself or someone else? Patient reports no desire to harm self or others. Onset of symptoms was July 12, 2024. 15:53 Method Of Arrival: Wheelchair iw 15:53 Acuity: MAX 3 iw Triage Assessment: 16:00 General: Appears in no apparent distress. Behavior is cooperative, appropriate for age, bp anxious. Pain: Complains of pain in right lower quadrant. EENT: No deficits noted. Neuro: No deficits noted. Cardiovascular: No deficits noted. Respiratory: No deficits noted. GI: Reports lower abdominal pain, constipation, rectal bleeding. : No signs and/or symptoms were reported regarding the genitourinary system. Derm: No deficits noted. Musculoskeletal: No deficits noted. Historical: - Allergies: 15:54 No Known Allergies; iw - PMHx: 15:54 diabetes mellitus; Hypertensive disorder; Dementia; iw - PSHx: 15:54 femoral popliteal bypass; iw - Immunization history:: Adult Immunizations up to date. - Infectious Disease History:: Denies. - Social history:: Smoking status: Patient denies any tobacco usage or history of. Screenin:00 [facility] ED Fall Risk Assessment (Adult) History of falling in the last 3 months, ld1 including since admission No falls in past 3 months (0 pts) Confusion or Disorientation No (0 pts) Intoxicated or Sedated No (0 pts) Impaired Gait No (0 pts) Mobility Assist Device Used No (0 pt) Altered Elimination No (0 pt) Score/Fall Risk Level 0 - 2 = Low Risk Oriented to surroundings, Hourly rounding (assess needs \T\ fall precautionary measures) done. Abuse screen: Denies threats or abuse. Denies injuries from another. Nutritional screening: No deficits noted. Tuberculosis screening: No symptoms or risk factors identified. Assessment: 18:00 General: Appears in no apparent distress. uncomfortable, Behavior is calm, cooperative, ld1 appropriate for age. Pain: Complains of pain in abdomen Pain does not radiate. Pain currently is 7 out of 10 on a pain scale. Quality of pain is described as throbbing, Pain began suddenly, Is continuous. Neuro: Level of Consciousness is awake, alert, obeys commands, Oriented to person, place, time, situation. Cardiovascular: Capillary refill < 3 seconds Patient's skin is warm and dry. Respiratory: Airway is patent Respiratory effort is even, unlabored. GI: Abdomen is round non-distended, Bowel sounds present X 4 quads. Abd is soft Abd is non tender Reports rectal bleeding. : No signs and/or symptoms were reported regarding the genitourinary system. EENT: No signs and/or symptoms were reported regarding the EENT system. Derm: No signs and/or symptoms reported regarding the dermatologic system. Musculoskeletal: No signs and/or symptoms reported regarding the musculoskeletal system. 19:26 Reassessment: Patient appears in no apparent distress at this time. Patient and/or bm8 family updated on plan of care and expected duration. Pain level reassessed. Patient is alert, oriented x 3, equal unlabored respirations, skin warm/dry/pink. Patient denies pain at this time. 20:59 Reassessment: Patient appears in no apparent distress at this time. No changes from bm8 previously documented assessment. Patient and/or family updated on plan of care and expected duration. Pain level reassessed. Patient is alert, oriented x 3, equal unlabored respirations, skin warm/dry/pink. 22:56 Reassessment: Patient appears in no apparent distress at this time. No changes from bm8 previously documented assessment. Patient and/or family updated on plan of care and expected duration. Pain level reassessed. Patient is alert, oriented x 3, equal unlabored respirations, skin warm/dry/pink. Report to SHMUEL Landon at [facility] Patient denies pain at this time. 23:47 Reassessment: Patient appears in no apparent distress at this time. No changes from bm8 previously documented assessment. Patient and/or family updated on plan of care and expected duration. Pain level reassessed. Patient is alert, oriented x 3, equal unlabored respirations, skin warm/dry/pink. Patient denies pain at this time. Patient states feeling better. Patient states symptoms have improved. Vital Signs: 15:53 BP 125 / 73; Pulse 90; Resp 16; Temp 98; Pulse Ox 96% on R/A; Weight 80.29 kg; Height 5 iw ft. 11 in. ; Pain 10/10; 19:26 BP 144 / 87; Pulse 89; Resp 17; Temp 98; Pulse Ox 99% ; Pain 0/10; bm8 20:59 BP 140 / 87; Pulse 88; Resp 18; Temp 98; Pulse Ox 99% ; Pain 0/10; bm8 22:56 BP 135 / 90; Pulse 91; Resp 16; Temp 98; Pulse Ox 99% ; Pain 0/10; bm8 23:47 BP 131 / 80; Pulse 90; Resp 17; Temp 98; Pulse Ox 96% ; Pain 0/10; bm8 15:53 Body Mass Index 24.69 (80.29 kg, 180.34 cm) iw 15:53 Pain Scale: Adult iw 19:26 Pain Scale: Adult bm8 20:59 Pain Scale: Adult bm8 22:56 Pain Scale: Adult bm8 23:47 Pain Scale: Adult bm8 Ashwin Coma Score: 19:26 Eye Response: spontaneous(4). Motor Response: obeys commands(6). Verbal Response: bm8 oriented(5). Total: 15. 20:59 Eye Response: spontaneous(4). Motor Response: obeys commands(6). Verbal Response: bm8 oriented(5). Total: 15. 22:56 Eye Response: spontaneous(4). Motor Response: obeys commands(6). Verbal Response: bm8 oriented(5). Total: 15. ED Course: 15:33 Patient arrived in ED. cj3 15:42 Grover Whittaker DO is Attending Physician. ms3 15:54 Triage completed. iw 17:14 Radiology exam delayed due to lab results not completed at this time. (BUN/Creatinine) nj IV insertion attempt and/or patient not having appropriate IV at this time. 17:16 Burak Bah, RN is Primary Nurse. bp 18:00 Patient has correct armband on for positive identification. Placed in gown. Bed in low ld1 position. Call light in reach. Side rails up X2. Pulse ox on. NIBP on. Door closed. Noise minimized. Warm blanket given. 18:00 No provider procedures requiring assistance completed. Inserted saline lock: 20 gauge ld1 in right antecubital area, using aseptic technique. Blood collected. Flushed with 10 mL NS. 18:36 CT Abdomen - Angio: CTA abdomen and Pelvis In Process Unspecified. EDMS 18:36 Pelvis Angio In Process Unspecified. EDMS 18:39 Primary Nurse role handed off by Burak Bah, SHMUEL ld1 18:39 Ashley Whittaker, SHMUEL is Primary Nurse. ld1 21:00 Provided Education on: need for transfer. bm8 21:00 Patient maintains SpO2 saturation greater than 95% on room air. bm8 22:56 Patient transferred, IV remains in place. bm8 23:07 Arm band placed on right wrist. bm8 07/13 02:10 initiated transfer with thien at [facility]. \T\1958. Pt was accepted \T\2231 by Neha Ibrahim. Admin Thien N \T\ 2232. Pt will go to [facility] Room 2122. [facility] to transfer pt. Number for nurse to nurse report [phone]. Administered Medications: 00:01 Drug: morphine IVP or IV 4 mg IVP once over 4 mins Route: IVP; Infused Over: 4 mins; bm8 Site: right antecubital; 00:02 Follow up: Response: Medication Administered at Departure bm8 00:01 Drug: Ondansetron IVP 4 mg IVP once; over 2 minutes Route: IVP; Site: right antecubital;bm8 00:02 Follow up: Response: Medication Administered at Departure bm8 Medication: 07/12 18:00 VIS not applicable for this client. ld1 Outcome: 19:38 ER care complete, transfer ordered by . ms3 22:56 Transferred by ground EMS to [facility], [facility], Transfer form completed. bm8 X-rays sent w/ patient. 22:56 Condition: stable 22:56 Instructed on the need for transfer, Demonstrated understanding of instructions, follow-up care, medications, 07/13 00:04 Patient left the ED. bm8 Signatures: Dispatcher [employer] EDMamie Fan, RN RN iw Mook Workman Brian RN RN Grover Whittaker, DO ms3 Ashley Whittaker RN RN ld1 Carey Mcqueen [facility] Alvin Hopkins RN RN bm8 Rocío Price 3
--- NOTE | 2024-07-12 22:05 | RAD REPORT ---
EXAM: CT PELVIS ANGIOGRAPHY WITH IV CONTRAST HISTORY: 63 yearsMaleRECTAL BLEEDING COMPARISON: No prior exam. FINDINGS: LOWER CHEST: The visualized lung bases are clear. LIVER: Normal in size and contour. No focal lesion. BILIARY SYSTEM: No suspicious abnormalities. SPLEEN: Normal size. No focal lesion. PANCREAS: No mass, ductal dilation, or travis-pancreatic fluid. ADRENALS: Normal; no mass. KIDNEYS: Normal size and contour. No hydronephrosis. Small nonobstructing calculus right kidney measu ring 6 mm. GASTROINTESTINAL TRACT: No evidence of bowel obstruction, significant free fluid, free air or abscess . Prominent retained stool in the rectum. LYMPH NODES: No lymphadenopathy. MUSCULOSKELETAL: Mild multilevel spinal degenerative changes. 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 No patholog ic flow abnormality detected. IMPRESSION: Prominent retained stool in the rectum. No pathologic flow abnormality detected. Electronically signed by: Jayy Souza MD 07/12/2024 7:28 PM CDT RP Workstation Electronically signed by: Jayy Souza MD 07/12/2024 07:43 PM T Due to temporary technical issues with the PACS/[employer] reporting system, reports are being santi d by the in-house radiologist without review as a courtesy to ensure prompt reporting the interpreting radiologist is fully responsible for the content of the report. Transcribed Date/Time: 07/12/2024 10:05 PM
--- NOTE | 2024-07-12 22:06 | RAD REPORT ---
EXAMINATION: CT ABDOMEN ANGIOGRAM WITH IV CONTRAST CLINICAL INDICATION: Male, 63 years old. Rectal bleeding;Abd pain TECHNIQUE: CT abdomen angiogram as per department protocol. Axial, sagittal and coronal reconstructio ns were obtained. One or more of the following dose reduction techniques were used: Automated exposure control, adjustment of the mA and kV according to the patient size, and iterative reconstruc tion. Unless otherwise specified, incidental findings do not require dedicated imaging follow-up. COMPARISON: No prior exam. FINDINGS: LOWER CHEST: The visualized lung bases are clear. LIVER: Normal in size and contour. No focal lesion. BILIARY SYSTEM: No suspicious abnormalities. SPLEEN: Normal size. No focal lesion. PANCREAS: No mass, ductal dilation, or travis-pancreatic fluid. ADRENALS: Normal; no mass. KIDNEYS: Normal size and contour. No hydronephrosis. Small nonobstructing calculus right kidney measu ring 6 mm. GASTROINTESTINAL TRACT: No evidence of bowel obstruction, significant free fluid, free air or abscess . Prominent retained stool in the rectum. LYMPH NODES: No lymphadenopathy. MUSCULOSKELETAL: Mild multilevel spinal degenerative changes. 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 No signific ant flow abnormality otherwise seen. IMPRESSION: Prominent retained stool in the rectum. No significant flow abnormality seen. Electronically signed by: Jayy Souza MD 07/12/2024 07:28 PM CDT Due to temporary technical issues with the PACS/[employer] reporting system, reports are being santi d by the in-house radiologist without review as a courtesy to ensure prompt reporting the interpreting radiologist is fully responsible for the content of the report. Transcribed Date/Time: 07/12/2024 10:06 PM
[2024-07-12] MEDS ORDERED: MORPHINE 4 MG/ML SYR ONE (23:59)
[2024-07-12] MEDS ORDERED: ONDANSETRON 4 MG/2 ML VIAL ONE (23:59)
[2024-07-13 00:20] VITALS: TEMP 98
[2024-07-13 00:28] VITALS: BP 131/80; O2SAT 96
== END 2024-07-13 00:04 | disposition short-term general hospital (02) ==
LOC: ER 15:22
DX: D64.9 Anemia, unspecified (principal); I10 Essential (primary) hypertension
CPT/HCPCS: 85025; 36415; 86900; 86850; 85610; 86901; 83690; 80053; 72191; 74175; 96375; 96374; 99285; Q9967; J2405